=== PATIENT | female | born 1955 | race Caucasian/White ===

== ENCOUNTER 2016-11-09 15:48 | Inpatient (IN) | payer BC ==
[~2016-11-09] VITALS: Ht 167.6 cm; Wt 102.0 kg
[~2016-11-09 15:48] MED LIST: DICLOFENAC SODI50 MG PO; LEXAPRO10 MG PO; NORCO 5/3251 TABLET PO; VITAMIN C1000 M1 PO; XANAX0.5 MG PO
[2016-11-09 17:16] LABS: BASOPHIL COUNT 0.1 K/uL (0-0.1); EOSINOPHIL (%) 16.6 % (0-5); EOSINOPHIL COUNT 2.2 K/uL (0-0.3); HEMATOCRIT 37.6 % (36.0-46.0); IMMATURE GRANULOCYTE (%) 1.5 % (0.0-0.7); IMMATURE GRANULOCYTE COUNT 0.2 K/uL; INSTRUMENT ABS NEUTROPHIL CT 8.5 K/uL; LYMPHOCYTE COUNT 1.3 K/uL (1.0-2.8); MCV 96.9 FL (83-99); MEAN PLAT.VOLUME 9.7 uM^3 (9.5-12.4); MONOCYTE (%) 5.8 % (3-12); MONOCYTE COUNT 0.8 K/uL (0-0.8); NEUTROPHIL (%) 65.4 % (45-76); NEUTROPHIL COUNT 8.5 K/uL (1.8-6.4); PLATELET COUNT 192 K/uL (156-360); RBC DIS.WIDTH-CV 14.6 % (11.8-14.6); RBC DIS.WIDTH-SD 51.8 % (39-53); RED BLOOD COUNT 3.88 M/uL (3.80-5.20)
[2016-11-09 17:25] LABS: CHLORIDE 103 mEq/L (99-109); POTASSIUM 3.8 mEq/L (3.7-5.4); SODIUM 137 mEq/L (136-147)
[2016-11-09 17:28] LABS: GLUCOSE 113 mg/dL (70-99)
[2016-11-09 17:29] LABS: ANION GAP 10 MEQ/L (2-14); TOTAL BILIRUBIN 0.8 mg/dL (0.0-1.0)
[2016-11-09 17:31] LABS: ALKALINE PHOSPHATASE 84 IU/L (3-129); GFR ESTIMATE (CALCULATED) > 59 mL/min/
[2016-11-09 17:32] LABS: UREA NITROGEN (BUN) 34 mg/dL (9-23)
[2016-11-09 17:35] LABS: LIPASE 3 U/L (1.0-51.0)
[2016-11-09] MEDS ORDERED: K-DUR10 MEQ PO (20:08)
[2016-11-09] MEDS ORDERED: LEVO-T50 MCG PO (20:09)
[2016-11-09] MEDS ORDERED: LASIX40 MG PO (20:10)
[2016-11-09] MEDS ORDERED: PROAIR HFA8.5 GM IH (20:11)
[2016-11-09] MEDS ORDERED: ASPIRIN325 MG PO (20:11)
[2016-11-09 20:24] LABS: ADD MIUA? YES; BILIRUBIN NEGATIVE; BLOOD SMALL; COLOR AMBER ((YELLOW)); GLUCOSE (STRIP) NEGATIVE; KETONES NEGATIVE; LEUKOCYTES SMALL; NITRITE NEGATIVE; PROTEIN (STRIP) 30; SPECIFIC GRAVITY 1.016 (1.000-1.030); UROBILINOGEN 0.2 MG/DL (0.2-1.0)
[2016-11-09 20:36] LABS: BACTERIA RARE /HPF; EPITHELIAL CELLS 1+ /HPF; HYALINE CASTS 30-40 /LPF; MUCUS 1+ /LPF; RED BLOOD CELLS 0-5 /HPF (0-5)
[2016-11-10 06:24] LABS: BASOPHIL COUNT 0.1 K/uL (0-0.1); EOSINOPHIL (%) 15.9 % (0-5); EOSINOPHIL COUNT 2.1 K/uL (0-0.3); HEMATOCRIT 36.3 % (36.0-46.0); IMMATURE GRANULOCYTE (%) 1.5 % (0.0-0.7); IMMATURE GRANULOCYTE COUNT 0.2 K/uL; INSTRUMENT ABS NEUTROPHIL CT 8.1 K/uL; LYMPHOCYTE COUNT 1.6 K/uL (1.0-2.8); MCH 31.7 PG (29.0-34.0); MCHC 32.8 G/DL (30.0-36.0); MCV 96.8 FL (83-99); MEAN PLAT.VOLUME 9.6 uM^3 (9.5-12.4); MONOCYTE COUNT 0.9 K/uL (0-0.8); NEUTROPHIL (%) 62.7 % (45-76); NEUTROPHIL COUNT 8.1 K/uL (1.8-6.4); PLATELET COUNT 203 K/uL (156-360); RBC DIS.WIDTH-CV 14.6 % (11.8-14.6); RBC DIS.WIDTH-SD 51.8 % (39-53); RED BLOOD COUNT 3.75 M/uL (3.80-5.20); WHITE BLOOD COUNT 12.9 K/uL (4.1-10.2)
[2016-11-10 06:35] LABS: CHLORIDE 103 mEq/L (99-109); POTASSIUM 3.9 mEq/L (3.7-5.4); SODIUM 135 mEq/L (136-147)
[2016-11-10 06:37] LABS: GLUCOSE 108 mg/dL (70-99)
[2016-11-10 06:38] LABS: ANION GAP 9 MEQ/L (2-14)
[2016-11-10 06:40] LABS: ALKALINE PHOSPHATASE 74 IU/L (3-129)
[2016-11-10 06:41] LABS: GFR ESTIMATE (CALCULATED) > 59 mL/min/; TOTAL BILIRUBIN 0.6 mg/dL (0.0-1.0)
[2016-11-10 06:42] LABS: UREA NITROGEN (BUN) 33 mg/dL (9-23)
[2016-11-10 06:44] LABS: CREATINE KINASE 15 IU/L (1-294)
[2016-11-10 07:55] LABS: CA-125 25 U/ML (LESS THAN 35)
[2016-11-10 08:29] VITALS: BP 118/78
[2016-11-10 10:28] LABS: LYME DISEASE SEROLOGY SCREEN NEGATIVE (NEGATIVE)
[2016-11-10 11:50] VITALS: BP 117/79
[2016-11-10 14:12] VITALS: BP 112/63
[2016-11-10 14:30] VITALS: BP 114/56
[2016-11-10 14:34] LABS: INTER. NORMALIZED RATIO 1.1; PROTHROMBIN TIME 11.5 (9.2-11.2); PTT 27.1 (25-32)
[2016-11-10 20:33] VITALS: BP 111/56
[2016-11-10 23:38] VITALS: BP 123/64
[2016-11-11 04:10] VITALS: BP 119/63
[2016-11-11 07:47] LABS: HEMATOCRIT 35.9 % (36.0-46.0); MCH 31.9 PG (29.0-34.0); MCHC 32.3 G/DL (30.0-36.0); MCV 98.6 FL (83-99); MEAN PLAT.VOLUME 9.6 uM^3 (9.5-12.4); NRBC (%) 0.2 /100 WBC (0-0); PLATELET COUNT 188 K/uL (156-360); RBC DIS.WIDTH-CV 14.6 % (11.8-14.6); RBC DIS.WIDTH-SD 53.6 % (39-53); RED BLOOD COUNT 3.64 M/uL (3.80-5.20); WHITE BLOOD COUNT 12.8 K/uL (4.1-10.2)
[2016-11-11 08:10] LABS: ALKALINE PHOSPHATASE 74 IU/L (3-129); ANION GAP 9 MEQ/L (2-14); CHLORIDE 102 MEQ/L (99-109); GFR ESTIMATE (CALCULATED) 53 mL/min/; GLUCOSE 121 mg/dL (70-99); POTASSIUM 3.6 MEQ/L (3.7-5.4); SAMPLE HEMOLYSIS CHECK 0; SAMPLE ICTERIC CHECK 0; SAMPLE LIPEMIA CHECK 0; SODIUM 134 MEQ/L (136-147); TOTAL BILIRUBIN 0.5 MG/DL (0.0-1.0); UREA NITROGEN (BUN) 34 mg/dL (9-23)
[2016-11-11 08:30] VITALS: BP 97/54
[2016-11-11] MEDS ORDERED: CYANOCOBALAM1000 MCG PO (09:19)
[2016-11-11] MEDS ORDERED: CIPRO500 MG PO (09:20)
[2016-11-11] MEDS ORDERED: ATIVAN0.5 MG PO (09:21)
[2016-11-11 10:52] LABS: ANTI-NUCLEAR AB SCRN/RFLX(ANA) NONREACTIVE (NONREACTIVE)
[2016-11-12 17:13] LABS: Flow Clinical Information NOT PROVIDED (()); Flow Number of Markers 24 (()); Flow Spec Viability 81 % (())
== END 2016-11-11 12:04 | disposition home or self-care (01) | DRG 988 ==
LOC: EME 15:48 → 3EAST 19:30 → EDOF 19:30 → 3EAST 11-10 07:16
PROVIDERS: Anesthesiology; Family Medicine; Physician Assistant; Radiology Diagnostic Radiology
PROC: 07BH3ZX Excision of Right Inguinal Lymphatic, Percutaneous Approach, Diagnostic (ICD-10-PCS; principal; 2016-11-11)
DX: K56.7 Ileus, unspecified (principal); N39.0 Urinary tract infection, site not specified; D68.69 Other thrombophilia; I08.3 Combined rheumatic disorders of mitral, aortic and tricuspid valves; I80.9 Phlebitis and thrombophlebitis of unspecified site; R16.1 Splenomegaly, not elsewhere classified; R59.1 Generalized enlarged lymph nodes; E03.9 Hypothyroidism, unspecified; I10 Essential (primary) hypertension; E78.5 Hyperlipidemia, unspecified; E78.1 Pure hyperglyceridemia; F43.23 Adjustment disorder with mixed anxiety and depressed mood; E53.8 Deficiency of other specified B group vitamins; E87.6 Hypokalemia; E86.0 Dehydration; K59.00 Constipation, unspecified; F17.210 Nicotine dependence, cigarettes, uncomplicated; Z91.19 Patient's noncompliance with other medical treatment and regimen
CPT/HCPCS: 71275; 74176; 76942; 80053; 81003; 82550; 82607; 83605; 83690; 84439; 84443; 85025; 85027; 85610; 85730; 86038; 86304; 86430; 86618; 87086; 88184 90; 88185 90; 88189 90; 88305; 93005; 93306; 99202; 99281; 99285; C9113; J0696; J1885; J2405; J2765; J3010; J7030; J7050

== ENCOUNTER 2016-11-16 15:51 | Inpatient (IN) | payer BC ==
[~2016-11-16] VITALS: Ht 167.6 cm; Wt 110.9 kg
[~2016-11-16 15:51] MED LIST changes: +ASPIRIN325 MG PO; +ATIVAN0.5 MG PO; +CIPRO500 MG PO; +CYANOCOBALAM1000 MCG PO; +K-DUR10 MEQ PO; +LASIX40 MG PO; +LEVO-T50 MCG PO; +PROAIR HFA8.5 GM IH
[2016-11-16] MEDS ORDERED: ZOFRAN ODT4 MG PO (16:35)
[2016-11-16] MEDS ORDERED: KLOR-CON 1010 ME1 PO (16:36)
[2016-11-16 17:44] LABS: HEMATOCRIT 29.7 % (36.0-46.0); MCH 31.5 PG (29.0-34.0); MCV 95.5 FL (83-99); RBC DIS.WIDTH-CV 14.7 % (11.8-14.6); RBC DIS.WIDTH-SD 51.9 % (39-53); RED BLOOD COUNT 3.11 M/uL (3.80-5.20); WHITE BLOOD COUNT 12.9 K/uL (4.1-10.2)
[2016-11-16 17:47] LABS: CHLORIDE 106 mEq/L (99-109); POTASSIUM 3.6 mEq/L (3.7-5.4); SODIUM 134 mEq/L (136-147)
[2016-11-16 17:49] LABS: GLUCOSE 109 mg/dL (70-99)
[2016-11-16 17:51] LABS: ANION GAP 7 MEQ/L (2-14)
[2016-11-16 17:53] LABS: ALKALINE PHOSPHATASE 75 IU/L (3-129); GFR ESTIMATE (CALCULATED) 53 mL/min/
[2016-11-16 17:54] LABS: UREA NITROGEN (BUN) 41 mg/dL (9-23)
[2016-11-16 17:55] LABS: DIRECT BILIRUBIN 0.4 mg/dL (0.0-0.3)
[2016-11-16 17:56] LABS: LIPASE 3 U/L (1.0-51.0)
[2016-11-16 17:59] LABS: TOTAL BILIRUBIN 0.9 mg/dL (0.0-1.0)
[2016-11-16 18:09] VITALS: BP 126/62
[2016-11-16 18:24] LABS: MEAN PLAT.VOLUME 11.3 uM^3 (9.5-12.4); PLATELET COUNT 53 K/uL (156-360)
[2016-11-16 19:47] LABS: AMYLASE 6 IU/L (1-118)
[2016-11-16 20:19] VITALS: BP 119/70
[2016-11-16 20:37] LABS: GAMMA-GT 17 IU/L (4-73)
[2016-11-16 22:42] LABS: ADD MIUA? YES; BILIRUBIN NEGATIVE; BLOOD MODERATE; COLOR YELLOW ((YELLOW)); GLUCOSE (STRIP) NEGATIVE; KETONES NEGATIVE; LEUKOCYTES NEGATIVE; NITRITE NEGATIVE; PROTEIN (STRIP) NEGATIVE; SPECIFIC GRAVITY 1.015 (1.000-1.030); UROBILINOGEN 0.2 MG/DL (0.2-1.0)
[2016-11-16 23:35] VITALS: BP 126/70
[2016-11-16 23:51] LABS: BACTERIA NONE SEEN /HPF; EPITHELIAL CELLS RARE /HPF; MUCUS TRACE /LPF; RED BLOOD CELLS 0-5 /HPF (0-5); UCUL ADDED? NO; WHITE BLOOD CELLS 0-5 /HPF (0-5)
[2016-11-17 04:10] VITALS: BP 110/63
[2016-11-17 07:12] LABS: HEMATOCRIT 32.7 % (36.0-46.0); MCH 31.4 PG (29.0-34.0); MCHC 32.1 G/DL (30.0-36.0); MCV 97.9 FL (83-99); RBC DIS.WIDTH-CV 15.1 % (11.8-14.6); RBC DIS.WIDTH-SD 54.7 % (39-53); RED BLOOD COUNT 3.34 M/uL (3.80-5.20); WHITE BLOOD COUNT 11.8 K/uL (4.1-10.2)
[2016-11-17 07:38] LABS: ANION GAP 8 MEQ/L (2-14); CHLORIDE 106 MEQ/L (99-109); GFR ESTIMATE (CALCULATED) 53 mL/min/; GLUCOSE 117 mg/dL (70-99); POTASSIUM 3.9 MEQ/L (3.7-5.4); SAMPLE HEMOLYSIS CHECK 0; SAMPLE ICTERIC CHECK 0; SAMPLE LIPEMIA CHECK 0; SODIUM 137 MEQ/L (136-147); UREA NITROGEN (BUN) 36 mg/dL (9-23)
[2016-11-17 07:53] LABS: ABS NEUTROPHIL COUNT 7.2; ATYPICAL LYMPHOCYTE 8.1 %; BAND NEUTROPHILS 7.2 % (0-8.0); EOSINOPHIL ABS CT 1.2; EOSINOPHILS 9.9 % (0-5.0); IMM.PLATELET FRACTION 3.8 (1-7); INSTRUMENT ABS NEUTROPHIL CT 5.7 K/uL; LYMPHOCYTES 10.8 % (15.0-45.0); MEAN PLAT.VOLUME 10.7 uM^3 (9.5-12.4); METAMYELOCYTES 4.5 %; MYELOCYTES 3.6 %; PLAT.SUFFICIENCY DECREASED; PLATELET COUNT 48 K/uL (156-360); SEG.NEUTROPHILS 54.1 % (46.0-76.0); SPHEROCYTES 1+
[2016-11-17 08:00] VITALS: BP 98/54
[2016-11-17 11:25] VITALS: BP 102/57
[2016-11-17 17:25] VITALS: BP 118/69
[2016-11-17 23:44] VITALS: BP 100/49
[2016-11-18 07:33] VITALS: BP 82/46
[2016-11-18 07:45] LABS: HEMATOCRIT 31.6 % (36.0-46.0); MCH 32.1 PG (29.0-34.0); MCHC 32.6 G/DL (30.0-36.0); MCV 98.4 FL (83-99); RBC DIS.WIDTH-SD 54.6 % (39-53); RED BLOOD COUNT 3.21 M/uL (3.80-5.20); WHITE BLOOD COUNT 10.3 K/uL (4.1-10.2)
[2016-11-18 09:53] LABS: ALKALINE PHOSPHATASE 58 IU/L (3-129); ANION GAP 6 MEQ/L (2-14); CHLORIDE 108 MEQ/L (99-109); DIRECT BILIRUBIN 0.2 mg/dL (0.0-0.3); GFR ESTIMATE (CALCULATED) > 59 mL/min/; GLUCOSE 104 mg/dL (70-99); MAGNESIUM 2.1 mg/dl (1.3-2.7); POTASSIUM 4.4 MEQ/L (3.7-5.4); PREALBUMIN 5.7 mg/dL (10-40); SAMPLE HEMOLYSIS CHECK 0; SAMPLE ICTERIC CHECK 0; SAMPLE LIPEMIA CHECK 0; SODIUM 136 MEQ/L (136-147); TRIGLYCERIDES 180 MG/DL (Normal: <150); UREA NITROGEN (BUN) 30 mg/dL (9-23)
[2016-11-18 09:54] LABS: TOTAL BILIRUBIN 0.7 MG/DL (0.0-1.0)
[2016-11-18 10:55] VITALS: BP 88/46
[2016-11-18 11:13] LABS: ABS NEUTROPHIL COUNT 5.2; EOSINOPHIL ABS CT 1.4; IMM.PLATELET FRACTION 3.9 (1-7); INSTRUMENT ABS NEUTROPHIL CT 4.9 K/uL; MEAN PLAT.VOLUME 11.6 uM^3 (9.5-12.4); PLATELET COUNT 37 K/uL (156-360)
[2016-11-18 16:00] VITALS: BP 90/49
[2016-11-18 19:45] VITALS: BP 99/42
[2016-11-19 00:17] VITALS: BP 93/49
[2016-11-19 06:49] VITALS: BP 96/53
[2016-11-19 08:13] LABS: CHLORIDE 109 mEq/L (99-109); POTASSIUM 4.6 mEq/L (3.7-5.4); SODIUM 133 mEq/L (136-147)
[2016-11-19 08:14] LABS: MAGNESIUM 1.8 mg/dL (1.3-2.7)
[2016-11-19 08:15] LABS: GLUCOSE 115 mg/dL (70-99)
[2016-11-19 08:17] LABS: ANION GAP 5 MEQ/L (2-14)
[2016-11-19 08:19] LABS: GFR ESTIMATE (CALCULATED) > 59 mL/min/
[2016-11-19 08:20] LABS: UREA NITROGEN (BUN) 26 mg/dL (9-23)
[2016-11-19 10:24] VITALS: BP 95/61
[2016-11-19 11:20] LABS: HEMATOCRIT 30.6 % (36.0-46.0); MCHC 32.4 G/DL (30.0-36.0); RBC DIS.WIDTH-SD 54.3 % (39-53); RED BLOOD COUNT 3.09 M/uL (3.80-5.20); WHITE BLOOD COUNT 8.3 K/uL (4.1-10.2)
[2016-11-19 13:37] LABS: ABS NEUTROPHIL COUNT 6.1; ACANTHOCYTES 1+; ANISOCYTOSIS 2+; BURR CELLS 1+; EOSINOPHIL ABS CT 0.4; HELMET CELLS 1+; IMM.PLATELET FRACTION 6.2 (1-7); INSTRUMENT ABS NEUTROPHIL CT 4.2 K/uL; POIKILOCYTOSIS 2+; TARGET CELLS 1+
[2016-11-19 13:53] LABS: PLATELET COUNT 30 K/uL (156-360)
[2016-11-19 16:01] VITALS: BP 102/60
[2016-11-20 07:07] LABS: ANION GAP 4 MEQ/L (2-14); CHLORIDE 109 MEQ/L (99-109); GFR ESTIMATE (CALCULATED) > 59 mL/min/; GLUCOSE 113 mg/dL (70-99); MAGNESIUM 1.9 mg/dl (1.3-2.7); POTASSIUM 4.4 MEQ/L (3.7-5.4); SAMPLE HEMOLYSIS CHECK 0; SAMPLE ICTERIC CHECK 0; SAMPLE LIPEMIA CHECK 0; SODIUM 133 MEQ/L (136-147); UREA NITROGEN (BUN) 25 mg/dL (9-23)
[2016-11-20 08:38] VITALS: BP 114/65
[2016-11-20 11:48] LABS: HEMATOCRIT 28.3 % (36.0-46.0); MCH 31.8 PG (29.0-34.0); MCHC 32.2 G/DL (30.0-36.0); RBC DIS.WIDTH-CV 15.1 % (11.8-14.6); RBC DIS.WIDTH-SD 54.8 % (39-53); RED BLOOD COUNT 2.86 M/uL (3.80-5.20); WHITE BLOOD COUNT 6.2 K/uL (4.1-10.2)
[2016-11-20 12:17] LABS: MEAN PLAT.VOLUME 12.1 uM^3 (9.5-12.4); PLAT.SUFFICIENCY DECREASED
[2016-11-20 12:58] LABS: PLATELET COUNT 27 K/uL (156-360)
[2016-11-20 15:48] VITALS: BP 102/55
[2016-11-20 20:28] VITALS: BP 109/69
[2016-11-20 23:41] VITALS: BP 116/70
[2016-11-21 06:11] LABS: HEMATOCRIT 26.3 % (36.0-46.0); MCH 31.5 PG (29.0-34.0); MCHC 32.3 G/DL (30.0-36.0); MCV 97.4 FL (83-99); RBC DIS.WIDTH-CV 15.2 % (11.8-14.6); WHITE BLOOD COUNT 6.2 K/uL (4.1-10.2)
[2016-11-21 06:36] LABS: ANION GAP 5 MEQ/L (2-14); CHLORIDE 110 MEQ/L (99-109); GFR ESTIMATE (CALCULATED) > 59 mL/min/; GLUCOSE 128 mg/dL (70-99); MAGNESIUM 1.9 mg/dl (1.3-2.7); POTASSIUM 4.3 MEQ/L (3.7-5.4); SAMPLE HEMOLYSIS CHECK 0; SAMPLE ICTERIC CHECK 0; SAMPLE LIPEMIA CHECK 0; SODIUM 135 MEQ/L (136-147); UREA NITROGEN (BUN) 26 mg/dL (9-23)
[2016-11-21 07:45] VITALS: BP 116/64
[2016-11-21 08:04] LABS: EOSINOPHIL (%) 5.5 % (0-5); EOSINOPHIL COUNT 0.3 K/uL (0-0.3); HEMATOLOGY COMMENT 1 SMEAR COMPATIBLE; IMM.PLATELET FRACTION 4.2 (1-7); IMMATURE GRANULOCYTE COUNT 0.3 K/uL; INSTRUMENT ABS NEUTROPHIL CT 3.3 K/uL; LYMPHOCYTE COUNT 1.8 K/uL (1.0-2.8); MEAN PLAT.VOLUME 11.1 uM^3 (9.5-12.4); MONOCYTE (%) 8.1 % (3-12); MONOCYTE COUNT 0.5 K/uL (0-0.8); NEUTROPHIL (%) 52.6 % (45-76); NEUTROPHIL COUNT 3.3 K/uL (1.8-6.4)
[2016-11-21 08:05] LABS: PLATELET COUNT 27 K/uL (156-360)
[2016-11-21 08:09] LABS: FERRITIN 234 NG/ML (10-291)
[2016-11-21 15:00] VITALS: BP 108/72
[2016-11-21 23:51] VITALS: BP 118/60
[2016-11-22 03:15] VITALS: BP 97/56
[2016-11-22 07:45] VITALS: BP 125/84
[2016-11-22 12:02] LABS: HEMATOCRIT 24.3 % (36.0-46.0); MCH 31.3 PG (29.0-34.0); MCHC 32.1 G/DL (30.0-36.0); MCV 97.6 FL (83-99); RED BLOOD COUNT 2.49 M/uL (3.80-5.20)
[2016-11-22 12:03] LABS: WHITE BLOOD COUNT 3.4 K/uL (4.1-10.2)
[2016-11-22 12:21] LABS: ATYPICAL LYMPHOCYTE 1.8 %; EOSINOPHIL ABS CT 0.1; EOSINOPHILS 3.5 % (0-5.0); IMM.PLATELET FRACTION 4.7 (1-7); INSTRUMENT ABS NEUTROPHIL CT 1.9 K/uL; LYMPHOCYTES 28.3 % (15.0-45.0); MEAN PLAT.VOLUME 11.6 uM^3 (9.5-12.4); MYELOCYTES 1.8 %; NUCLEATED RBC'S 0.9; PLAT.SUFFICIENCY DECREASED; SEG.NEUTROPHILS 58.4 % (46.0-76.0)
[2016-11-22 12:28] LABS: PLATELET COUNT 25 K/uL (156-360)
[2016-11-22 12:36] LABS: ALKALINE PHOSPHATASE 102 IU/L (3-129); ANION GAP 6 MEQ/L (2-14); CHLORIDE 108 MEQ/L (99-109); DIRECT BILIRUBIN 0.2 mg/dL (0.0-0.3); GFR ESTIMATE (CALCULATED) > 59 mL/min/; GLUCOSE 113 mg/dL (70-99); POTASSIUM 3.7 MEQ/L (3.7-5.4); PREALBUMIN 5.9 mg/dL (10-40); SAMPLE HEMOLYSIS CHECK 0; SAMPLE ICTERIC CHECK 0; SAMPLE LIPEMIA CHECK 0; SODIUM 135 MEQ/L (136-147); TOTAL BILIRUBIN 0.6 MG/DL (0.0-1.0); TRIGLYCERIDES 163 MG/DL (Normal: <150); UREA NITROGEN (BUN) 25 mg/dL (9-23)
[2016-11-22 15:35] VITALS: BP 104/56
[2016-11-23] VITALS (13 sets, daily range): BP systolic 105–125; BP diastolic 54–68
[2016-11-23 09:40] LABS: HEMATOCRIT 23.1 % (36.0-46.0); MCH 31.9 PG (29.0-34.0); MCHC 32.5 G/DL (30.0-36.0); MCV 98.3 FL (83-99); RBC DIS.WIDTH-SD 54.4 % (39-53); RED BLOOD COUNT 2.35 M/uL (3.80-5.20); WHITE BLOOD COUNT 2.9 K/uL (4.1-10.2)
[2016-11-23 09:50] LABS: INTER. NORMALIZED RATIO 1.2; PROTHROMBIN TIME 11.9 (9.2-11.2); PTT 29.9 (25-32)
[2016-11-23 09:56] LABS: CHLORIDE 110 mEq/L (99-109); POTASSIUM 3.8 mEq/L (3.7-5.4); SODIUM 139 mEq/L (136-147)
[2016-11-23 09:57] LABS: MAGNESIUM 1.9 mg/dL (1.3-2.7)
[2016-11-23 09:58] LABS: GLUCOSE 107 mg/dL (70-99)
[2016-11-23 10:00] LABS: ANION GAP 9 MEQ/L (2-14); EOSINOPHIL (%) 2.7 % (0-5); EOSINOPHIL COUNT 0.1 K/uL (0-0.3); IMMATURE GRANULOCYTE (%) 2.4 % (0.0-0.7); IMMATURE GRANULOCYTE COUNT 0.1 K/uL; INSTRUMENT ABS NEUTROPHIL CT 1.7 K/uL; LYMPHOCYTE COUNT 0.8 K/uL (1.0-2.8); MONOCYTE (%) 9.9 % (3-12); MONOCYTE COUNT 0.3 K/uL (0-0.8); NEUTROPHIL (%) 56.5 % (45-76); NEUTROPHIL COUNT 1.7 K/uL (1.8-6.4)
[2016-11-23 10:02] LABS: GFR ESTIMATE (CALCULATED) > 59 mL/min/
[2016-11-23 10:03] LABS: UREA NITROGEN (BUN) 26 mg/dL (9-23)
[2016-11-23 10:26] LABS: IMM.PLATELET FRACTION 4.8 (1-7); MEAN PLAT.VOLUME 11.9 uM^3 (9.5-12.4); PLAT.SUFFICIENCY DECREASED
[2016-11-23 10:28] LABS: PLATELET COUNT 25 K/uL (156-360)
[2016-11-23 13:06] LABS: ANISOCYTOSIS 1+; OVALOCYTES OCC
[2016-11-24 04:09] VITALS: BP 128/60
[2016-11-24 06:50] VITALS: BP 119/62
[2016-11-24 09:37] LABS: HEMATOCRIT 25.6 % (36.0-46.0); MCH 35.8 PG (29.0-34.0); MCHC 33.6 G/DL (30.0-36.0); RBC DIS.WIDTH-CV 17.4 % (11.8-14.6); RBC DIS.WIDTH-SD 68.8 % (39-53); WHITE BLOOD COUNT 2.8 K/uL (4.1-10.2)
[2016-11-24 09:42] LABS: MCV 106.7 FL (83-99)
[2016-11-24 10:04] LABS: EOSINOPHIL (%) 2.9 % (0-5); EOSINOPHIL COUNT 0.1 K/uL (0-0.3); IMM.PLATELET FRACTION 4.5 (1-7); IMMATURE GRANULOCYTE (%) 1.8 % (0.0-0.7); IMMATURE GRANULOCYTE COUNT 0.1 K/uL; INSTRUMENT ABS NEUTROPHIL CT 1.7 K/uL; LYMPHOCYTE COUNT 0.7 K/uL (1.0-2.8); MEAN PLAT.VOLUME 12.6 uM^3 (9.5-12.4); MONOCYTE (%) 8.3 % (3-12); MONOCYTE COUNT 0.2 K/uL (0-0.8); NEUTROPHIL (%) 62.5 % (45-76); NEUTROPHIL COUNT 1.7 K/uL (1.8-6.4); PLAT.SUFFICIENCY DECREASED
[2016-11-24 10:07] LABS: PLATELET COUNT 37 K/uL (156-360)
[2016-11-24 12:04] LABS: ANION GAP 4 MEQ/L (2-14); CHLORIDE 110 MEQ/L (99-109); GFR ESTIMATE (CALCULATED) > 59 mL/min/; GLUCOSE 148 mg/dL (70-99); POTASSIUM 3.4 MEQ/L (3.7-5.4); SAMPLE HEMOLYSIS CHECK 0; SAMPLE ICTERIC CHECK 0; SAMPLE LIPEMIA CHECK 0; SODIUM 140 MEQ/L (136-147); UREA NITROGEN (BUN) 28 mg/dL (9-23)
[2016-11-24 12:12] VITALS: BP 121/62
[2016-11-24 16:13] VITALS: BP 137/68
[2016-11-24 19:35] VITALS: BP 125/63
[2016-11-24 23:31] VITALS: BP 133/64
[2016-11-25 04:11] VITALS: BP 139/60
[2016-11-25 07:19] LABS: ANION GAP 7 MEQ/L (2-14); CHLORIDE 105 MEQ/L (99-109); GFR ESTIMATE (CALCULATED) > 59 mL/min/; GLUCOSE 124 mg/dL (70-99); POTASSIUM 4.1 MEQ/L (3.7-5.4); SAMPLE HEMOLYSIS CHECK 0; SAMPLE ICTERIC CHECK 0; SAMPLE LIPEMIA CHECK 0; SODIUM 135 MEQ/L (136-147); UREA NITROGEN (BUN) 32 mg/dL (9-23)
[2016-11-25 07:45] VITALS: BP 135/92
[2016-11-25] MEDS ORDERED: SPIRIVA RESPIMAT4 GM IH (12:50)
[2016-11-25] MEDS ORDERED: CYANOCOBAL1000 MCG/2 SC (12:53)
[2016-11-25 17:13] LABS: Flow Number of Markers 22 (()); Flow Spec Viability 90 % (()); Flow Specimen Type BONE MARROW (())
== END 2016-11-25 15:35 | disposition home health service (06) | DRG 840 ==
LOC: EME 15:51 → 2EAST 16:29 → EDOF 16:29 → 2EAST 17:39
PROVIDERS: Anesthesiology; Emergency Medicine; Family Medicine; Internal Medicine Gastroenterology; Nurse Practitioner Adult Health; Physician Assistant; Radiology Diagnostic Radiology
PROC: 0DB68ZX Excision of Stomach, Via Natural or Artificial Opening Endoscopic, Diagnostic (ICD-10-PCS; principal; 2016-11-17)
PROC: 0DB98ZX Excision of Duodenum, Via Natural or Artificial Opening Endoscopic, Diagnostic (ICD-10-PCS; principal; 2016-11-17)
PROC: 3E0436Z Introduction of Nutritional Substance into Central Vein, Percutaneous Approach (ICD-10-PCS; 2016-11-19)
PROC: 30233N1 Transfusion of Nonautologous Red Blood Cells into Peripheral Vein, Percutaneous Approach (ICD-10-PCS; 2016-11-23)
PROC: 07DR3ZX Extraction of Iliac Bone Marrow, Percutaneous Approach, Diagnostic (ICD-10-PCS; 2016-11-23)
DX: C85.98 Non-Hodgkin lymphoma, unspecified, lymph nodes of multiple sites (principal); K56.7 Ileus, unspecified; I10 Essential (primary) hypertension; R60.9 Edema, unspecified; K25.9 Gastric ulcer, unspecified as acute or chronic, without hemorrhage or perforation; F41.9 Anxiety disorder, unspecified; E78.5 Hyperlipidemia, unspecified; E78.1 Pure hyperglyceridemia; E03.9 Hypothyroidism, unspecified; F32.9 Major depressive disorder, single episode, unspecified; D68.59 Other primary thrombophilia; E43 Unspecified severe protein-calorie malnutrition; D68.61 Antiphospholipid syndrome; K44.9 Diaphragmatic hernia without obstruction or gangrene; D63.0 Anemia in neoplastic disease; D69.59 Other secondary thrombocytopenia; D51.9 Vitamin B12 deficiency anemia, unspecified; J44.9 Chronic obstructive pulmonary disease, unspecified; F43.23 Adjustment disorder with mixed anxiety and depressed mood; F17.210 Nicotine dependence, cigarettes, uncomplicated; Z68.39 Body mass index [BMI] 39.0-39.9, adult; E66.9 Obesity, unspecified; Z68.35 Body mass index [BMI] 35.0-35.9, adult; R62.7 Adult failure to thrive; R09.02 Hypoxemia
CPT/HCPCS: 71010; 71020; 71250; 76705; 76937; 77012; 80048; 80053; 80076; 81003; 82150; 82248; 82728; 82746; 82977; 83605; 83690; 83735; 84100; 84134; 84478; 84540; 84630 90; 85025; 85025 91; 85027; 85610; 85730; 85999; 86900; 86901; 86920; 87040; 87086; 88184 90; 88185 90; 88189 90; 88305; 88342 TC; 93971; 94010; 94640 76; 94799; 99202; 99281; 99284; C9113; J1940; J1956; J2060; J2270; J2405; J3010; J3420; J3480; J7030; J7042; P9016

== ENCOUNTER 2016-12-20 10:31 | Inpatient (IN) | payer BC ==
[~2016-12-20] VITALS: Ht 167.6 cm; Wt 93.2 kg
[2016-12-20] VITALS (11 sets, daily range): BP systolic 128–167; BP diastolic 61–89
[~2016-12-20 10:31] MED LIST changes: +CYANOCOBAL1000 MCG/2 SC; +KLOR-CON 1010 ME1 PO; +SPIRIVA RESPIMAT4 GM IH; +ZOFRAN ODT4 MG PO
[2016-12-20 12:23] LABS: CHLORIDE 109 mEq/L (99-109); POTASSIUM 4.3 mEq/L (3.7-5.4); SODIUM 138 mEq/L (136-147)
[2016-12-20 12:25] LABS: EOSINOPHIL (%) 1.3 % (0-5); EOSINOPHIL COUNT 0.1 K/uL (0-0.3); GLUCOSE 116 mg/dL (70-99); HEMATOCRIT 18.2 % (36.0-46.0); IMMATURE GRANULOCYTE (%) 3.1 % (0.0-0.7); IMMATURE GRANULOCYTE COUNT 0.2 K/uL; INSTRUMENT ABS NEUTROPHIL CT 2.5 K/uL; LYMPHOCYTE COUNT 1.7 K/uL (1.0-2.8); MCH 30.1 PG (29.0-34.0); MCHC 31.9 G/DL (30.0-36.0); MCV 94.3 FL (83-99); MONOCYTE (%) 8.5 % (3-12); MONOCYTE COUNT 0.4 K/uL (0-0.8); NEUTROPHIL (%) 51.3 % (45-76); NEUTROPHIL COUNT 2.5 K/uL (1.8-6.4); NRBC (%) 0.4 /100 WBC (0-0); PLATELET COUNT 64 K/uL (156-360); RBC DIS.WIDTH-CV 14.5 % (11.8-14.6); RBC DIS.WIDTH-SD 49.3 % (39-53); RED BLOOD COUNT 1.93 M/uL (3.80-5.20); WHITE BLOOD COUNT 4.8 K/uL (4.1-10.2)
[2016-12-20 12:26] LABS: ANION GAP 7 MEQ/L (2-14)
[2016-12-20 12:29] LABS: GFR ESTIMATE (CALCULATED) > 59 mL/min/
[2016-12-20 12:30] LABS: UREA NITROGEN (BUN) 16 mg/dL (9-23)
[2016-12-20 12:40] LABS: INTER. NORMALIZED RATIO 1.1; PROTHROMBIN TIME 11.5 (9.2-11.2)
[2016-12-20] MEDS ORDERED: FUROSEMIDE40 MG PO (14:30)
[2016-12-20] MEDS ORDERED: K-DUR20 MEQ PO (14:30)
[2016-12-20] MEDS ORDERED: SPIRIVA1 INHALATI IH (14:32)
[2016-12-20] MEDS ORDERED: FLORASTOR250 MG PO (14:34)
[2016-12-20] MEDS ORDERED: COREG3.125 M1 PO (14:35)
[2016-12-20] MEDS ORDERED: OMEPRAZOLE20 MG PO (14:36)
[2016-12-20] MEDS ORDERED: DOXYCYCLINE MO100 M1 PO (14:38)
[2016-12-20] MEDS ORDERED: DIFLUCAN100 MG PO (14:39)
[2016-12-20] MEDS ORDERED: ATIVAN0.5 MG PO (14:40)
[2016-12-20] MEDS ORDERED: MOTRIN400 MG PO (14:42)
[2016-12-20] MEDS ORDERED: NORCO 5/3251 TABLET PO (14:42)
[2016-12-20] MEDS ORDERED: TYLENOL REGULA325 MG PO (14:43)
[2016-12-20] MEDS ORDERED: MULTI-VITAMIN1 EAC4 PO (14:44)
[2016-12-21 04:15] VITALS: BP 153/68
[2016-12-21 07:30] VITALS: BP 138/77
[2016-12-21 07:52] LABS: EOSINOPHIL (%) 1.7 % (0-5); EOSINOPHIL COUNT 0.1 K/uL (0-0.3); HEMATOCRIT 22.8 % (36.0-46.0); IMMATURE GRANULOCYTE (%) 2.1 % (0.0-0.7); IMMATURE GRANULOCYTE COUNT 0.1 K/uL; INSTRUMENT ABS NEUTROPHIL CT 2.4 K/uL; LYMPHOCYTE COUNT 2.1 K/uL (1.0-2.8); MCH 30.1 PG (29.0-34.0); MCHC 32.9 G/DL (30.0-36.0); MCV 91.6 FL (83-99); MEAN PLAT.VOLUME 10.5 uM^3 (9.5-12.4); MONOCYTE (%) 8.5 % (3-12); MONOCYTE COUNT 0.4 K/uL (0-0.8); NEUTROPHIL (%) 46.5 % (45-76); NEUTROPHIL COUNT 2.4 K/uL (1.8-6.4); NRBC (%) 0.4 /100 WBC (0-0); PLATELET COUNT 62 K/uL (156-360); RBC DIS.WIDTH-CV 15.4 % (11.8-14.6); RBC DIS.WIDTH-SD 50.2 % (39-53); WHITE BLOOD COUNT 5.2 K/uL (4.1-10.2)
[2016-12-21 08:13] LABS: ALKALINE PHOSPHATASE 68 IU/L (3-129); ANION GAP 10 MEQ/L (2-14); CHLORIDE 106 MEQ/L (99-109); GFR ESTIMATE (CALCULATED) > 59 mL/min/; GLUCOSE 101 mg/dL (70-99); POTASSIUM 4.2 MEQ/L (3.7-5.4); SAMPLE HEMOLYSIS CHECK 0; SAMPLE ICTERIC CHECK 0; SAMPLE LIPEMIA CHECK 0; SODIUM 139 MEQ/L (136-147); TOTAL BILIRUBIN 0.9 MG/DL (0.0-1.0); UREA NITROGEN (BUN) 14 mg/dL (9-23)
[2016-12-21 08:21] LABS: RED BLOOD COUNT 2.49 M/uL (3.80-5.20)
[2016-12-21 11:45] VITALS: BP 142/72
[2016-12-21 15:00] VITALS: BP 180/82
[2016-12-21 19:28] VITALS: BP 173/86
[2016-12-21 23:31] VITALS: BP 146/79
[2016-12-22 03:55] VITALS: BP 131/66
[2016-12-22 08:20] VITALS: BP 180/80
[2016-12-22 09:17] LABS: EOSINOPHIL (%) 1.2 % (0-5); EOSINOPHIL COUNT 0.1 K/uL (0-0.3); HEMATOCRIT 23.1 % (36.0-46.0); IMMATURE GRANULOCYTE (%) 2.1 % (0.0-0.7); IMMATURE GRANULOCYTE COUNT 0.1 K/uL; INSTRUMENT ABS NEUTROPHIL CT 2.2 K/uL; LYMPHOCYTE COUNT 1.6 K/uL (1.0-2.8); MCH 29.4 PG (29.0-34.0); MCHC 32.5 G/DL (30.0-36.0); MCV 90.6 FL (83-99); MEAN PLAT.VOLUME 10.4 uM^3 (9.5-12.4); MONOCYTE (%) 8.1 % (3-12); MONOCYTE COUNT 0.3 K/uL (0-0.8); NEUTROPHIL (%) 51.2 % (45-76); NEUTROPHIL COUNT 2.2 K/uL (1.8-6.4); NRBC (%) 0.5 /100 WBC (0-0); PLATELET COUNT 59 K/uL (156-360); RBC DIS.WIDTH-CV 14.9 % (11.8-14.6); RBC DIS.WIDTH-SD 48.2 % (39-53); RED BLOOD COUNT 2.55 M/uL (3.80-5.20); WHITE BLOOD COUNT 4.2 K/uL (4.1-10.2)
[2016-12-22 09:25] LABS: CHLORIDE 108 mEq/L (99-109); POTASSIUM 4.3 mEq/L (3.7-5.4); SODIUM 137 mEq/L (136-147)
[2016-12-22 09:26] LABS: GLUCOSE 106 mg/dL (70-99)
[2016-12-22 09:28] LABS: ANION GAP 7 MEQ/L (2-14)
[2016-12-22 09:30] LABS: GFR ESTIMATE (CALCULATED) > 59 mL/min/
[2016-12-22 09:31] LABS: UREA NITROGEN (BUN) 13 mg/dL (9-23)
[2016-12-22 12:00] VITALS: BP 180/84
[2016-12-22 16:07] VITALS: BP 178/80
[2016-12-22 16:57] LABS: POINT-OF-CARE METER ID UU14162508
[2016-12-22 20:00] VITALS: BP 145/70
[2016-12-22 23:38] VITALS: BP 134/76
[2016-12-23] VITALS (7 sets, daily range): BP systolic 121–175; BP diastolic 66–80
[2016-12-24 09:59] VITALS: BP 138/70
[2016-12-24 17:18] VITALS: BP 132/78
[2016-12-24 23:17] VITALS: BP 152/71
[2016-12-25] VITALS (13 sets, daily range): BP systolic 128–172; BP diastolic 63–78
[2016-12-25 07:08] LABS: EOSINOPHIL (%) 1.9 % (0-5); EOSINOPHIL COUNT 0.1 K/uL (0-0.3); HEMATOCRIT 20.1 % (36.0-46.0); INSTRUMENT ABS NEUTROPHIL CT 1.6 K/uL; LYMPHOCYTE COUNT 1.2 K/uL (1.0-2.8); MCHC 32.3 G/DL (30.0-36.0); MCV 92.6 FL (83-99); MEAN PLAT.VOLUME 10.2 uM^3 (9.5-12.4); MONOCYTE (%) 7.7 % (3-12); MONOCYTE COUNT 0.2 K/uL (0-0.8); NEUTROPHIL (%) 50.6 % (45-76); NEUTROPHIL COUNT 1.6 K/uL (1.8-6.4); PLATELET COUNT 57 K/uL (156-360); RBC DIS.WIDTH-CV 14.9 % (11.8-14.6); RBC DIS.WIDTH-SD 49.1 % (39-53); RED BLOOD COUNT 2.17 M/uL (3.80-5.20); WHITE BLOOD COUNT 3.1 K/uL (4.1-10.2)
[2016-12-25 09:03] LABS: ANION GAP 7 MEQ/L (2-14); CHLORIDE 106 MEQ/L (99-109); GFR ESTIMATE (CALCULATED) > 59 mL/min/; GLUCOSE 97 mg/dL (70-99); POTASSIUM 4.3 MEQ/L (3.7-5.4); SAMPLE HEMOLYSIS CHECK 0; SAMPLE ICTERIC CHECK 0; SAMPLE LIPEMIA CHECK 0; SODIUM 136 MEQ/L (136-147); UREA NITROGEN (BUN) 13 mg/dL (9-23)
[2016-12-26 04:10] VITALS: BP 142/76
[2016-12-26 06:11] LABS: HEMATOCRIT 24.7 % (36.0-46.0); MCH 30.6 PG (29.0-34.0); MCHC 33.6 G/DL (30.0-36.0); MCV 91.1 FL (83-99); MEAN PLAT.VOLUME 10.4 uM^3 (9.5-12.4); PLATELET COUNT 61 K/uL (156-360); RBC DIS.WIDTH-CV 14.9 % (11.8-14.6); RBC DIS.WIDTH-SD 48.2 % (39-53); WHITE BLOOD COUNT 3.4 K/uL (4.1-10.2)
[2016-12-26 06:43] VITALS: BP 124/61
[2016-12-26 06:55] LABS: RED BLOOD COUNT 2.71 M/uL (3.80-5.20)
[2016-12-26 10:45] VITALS: BP 127/65
[2016-12-26 14:58] VITALS: BP 168/77
[2016-12-26 19:15] VITALS: BP 128/67
[2016-12-26 23:27] VITALS: BP 142/69
[2016-12-27 03:25] VITALS: BP 119/62
[2016-12-27 07:46] VITALS: BP 125/67
[2016-12-27 08:14] LABS: HEMATOCRIT 25.1 % (36.0-46.0); MCH 30.1 PG (29.0-34.0); MCHC 32.7 G/DL (30.0-36.0); MCV 92.3 FL (83-99); MEAN PLAT.VOLUME 10.5 uM^3 (9.5-12.4); PLATELET COUNT 70 K/uL (156-360); RBC DIS.WIDTH-SD 49.4 % (39-53); RED BLOOD COUNT 2.72 M/uL (3.80-5.20); WHITE BLOOD COUNT 3.1 K/uL (4.1-10.2)
[2016-12-27 10:47] LABS: LYME DISEASE SEROLOGY SCREEN NEGATIVE (NEGATIVE)
[2016-12-27 16:00] VITALS: BP 27/79
[2016-12-27 20:00] VITALS: BP 130/80
[2016-12-28 01:05] VITALS: BP 120/57
[2016-12-28 03:45] VITALS: BP 127/61
[2016-12-28 08:00] VITALS: BP 134/63
[2016-12-28 17:56] VITALS: BP 144/67
[2016-12-28 19:28] VITALS: BP 131/72
[2016-12-28 23:55] VITALS: BP 117/69
[2016-12-29 08:00] VITALS: BP 125/76; BP 125/77
[2016-12-29 16:00] VITALS: BP 139/65
[2016-12-29 23:08] VITALS: BP 124/58
[2016-12-30 06:31] LABS: HEMATOCRIT 24.3 % (36.0-46.0); MCH 30.5 PG (29.0-34.0); MCHC 32.9 G/DL (30.0-36.0); MCV 92.7 FL (83-99); MEAN PLAT.VOLUME 9.8 uM^3 (9.5-12.4); NRBC (%) 0.6 /100 WBC (0-0); PLATELET COUNT 82 K/uL (156-360); RBC DIS.WIDTH-CV 15.1 % (11.8-14.6); RBC DIS.WIDTH-SD 49.5 % (39-53); RED BLOOD COUNT 2.62 M/uL (3.80-5.20); WHITE BLOOD COUNT 3.4 K/uL (4.1-10.2)
[2016-12-30 06:58] LABS: ANION GAP 6 MEQ/L (2-14); CHLORIDE 107 MEQ/L (99-109); GFR ESTIMATE (CALCULATED) > 59 mL/min/; GLUCOSE 109 mg/dL (70-99); POTASSIUM 3.8 MEQ/L (3.7-5.4); SAMPLE HEMOLYSIS CHECK 0; SAMPLE ICTERIC CHECK 0; SAMPLE LIPEMIA CHECK 0; SODIUM 136 MEQ/L (136-147); UREA NITROGEN (BUN) 12 mg/dL (9-23)
[2016-12-30 07:20] VITALS: BP 131/67
[2016-12-30 08:02] LABS: EOSINOPHIL (%) 4.9 % (0-5); EOSINOPHIL COUNT 0.2 K/uL (0-0.3); IMMATURE GRANULOCYTE (%) 3.5 % (0.0-0.7); IMMATURE GRANULOCYTE COUNT 0.1 K/uL; LYMPHOCYTE COUNT 0.8 K/uL (1.0-2.8); MONOCYTE (%) 9.3 % (3-12); MONOCYTE COUNT 0.3 K/uL (0-0.8); NEUTROPHIL (%) 57.9 % (45-76); PLAT.SUFFICIENCY DECREASED
[2016-12-30 15:10] VITALS: BP 142/65
[2016-12-30] MEDS ORDERED: VALACYCLOVIR500 MG PO (18:23)
[2016-12-30] MEDS ORDERED: DRONABINOL2.5 MG PO (18:25)
[2017-01-07] MEDS ORDERED: SENNA PLUS TAB1 EACH PO (13:47)
[2017-01-07] MEDS ORDERED: COMPAZINE10 MG PO (13:47)
[2017-01-07] MEDS ORDERED: ZOFRAN4 MG PO (13:47)
[2017-01-07] MEDS ORDERED: XANAX0.5 MG PO (13:51)
== END 2016-12-30 21:21 | DRG 824 ==
LOC: EME 10:31 → EDOF 15:15 → 2EASTP 15:15 → 2EAST 15:15 → 2EASTP 12-21 14:53 → 5EAST 12-23 23:11
PROVIDERS: Emergency Medicine; Internal Medicine
PROC: 30233N1 Transfusion of Nonautologous Red Blood Cells into Peripheral Vein, Percutaneous Approach (ICD-10-PCS; 2016-12-20)
PROC: 07BH0ZX Excision of Right Inguinal Lymphatic, Open Approach, Diagnostic (ICD-10-PCS; principal; 2016-12-23)
DX: C84.45 Peripheral T-cell lymphoma, not elsewhere classified, lymph nodes of inguinal region and lower limb (principal); J44.9 Chronic obstructive pulmonary disease, unspecified; E53.8 Deficiency of other specified B group vitamins; D61.818 Other pancytopenia; F17.200 Nicotine dependence, unspecified, uncomplicated; A60.04 Herpesviral vulvovaginitis; A60.1 Herpesviral infection of perianal skin and rectum; D47.Z9 Other specified neoplasms of uncertain behavior of lymphoid, hematopoietic and related tissue; R16.1 Splenomegaly, not elsewhere classified; I10 Essential (primary) hypertension; E78.5 Hyperlipidemia, unspecified; E03.9 Hypothyroidism, unspecified; E46 Unspecified protein-calorie malnutrition; D63.0 Anemia in neoplastic disease; E44.1 Mild protein-calorie malnutrition; Z68.33 Body mass index [BMI] 33.0-33.9, adult
CPT/HCPCS: 71010; 71260; 74177; 80048; 80048 91; 80053; 82948; 85025; 85025 91; 85027; 85610; 86618; 86900; 86901; 86920; 88305; 94640; 94640 76; 94799; 97530 GO; 97530 GP; 99202; 99281; 99284; J0133; J0330; J0690; J0696; J2250; J2270; J2405; J2997; J3010; J7030; J7050; P9016; P9040; Q0167; S0020

== ENCOUNTER 2017-01-14 12:23 | Inpatient (IN) | payer BC ==
[~2017-01-14] VITALS: Ht 167.6 cm; Wt 80.6 kg
[~2017-01-14 12:23] MED LIST changes: +COMPAZINE10 MG PO; +COREG3.125 M1 PO; +DIFLUCAN100 MG PO; +DOXYCYCLINE MO100 M1 PO; +DRONABINOL2.5 MG PO; +FLORASTOR250 MG PO; +FUROSEMIDE40 MG PO; +K-DUR20 MEQ PO; +MOTRIN400 MG PO; +MULTI-VITAMIN1 EAC4 PO; +OMEPRAZOLE20 MG PO; +SENNA PLUS TAB1 EACH PO; +SPIRIVA1 INHALATI IH; +TYLENOL REGULA325 MG PO; +VALACYCLOVIR500 MG PO; +ZOFRAN4 MG PO
[2017-01-14 14:05] LABS: ADD MIUA? YES; BILIRUBIN NEGATIVE; BLOOD SMALL; COLOR YELLOW ((YELLOW)); GLUCOSE (STRIP) NEGATIVE; KETONES NEGATIVE; LEUKOCYTES NEGATIVE; NITRITE NEGATIVE; PROTEIN (STRIP) 30; SPECIFIC GRAVITY 1.012 (1.000-1.030); UROBILINOGEN 0.2 MG/DL (0.2-1.0)
[2017-01-14 14:12] LABS: BACTERIA RARE /HPF; EPITHELIAL CELLS RARE /HPF; HYALINE CASTS 0-5 /LPF; MUCUS TRACE /LPF; UCUL ADDED? NO
[2017-01-14 14:25] LABS: HEMATOCRIT 19.4 % (36.0-46.0); MCH 30.4 PG (29.0-34.0); MCHC 33.5 G/DL (30.0-36.0); MCV 90.7 FL (83-99); RBC DIS.WIDTH-CV 15.1 % (11.8-14.6); RBC DIS.WIDTH-SD 46.9 % (39-53); RED BLOOD COUNT 2.14 M/uL (3.80-5.20)
[2017-01-14 14:32] LABS: CHLORIDE 103 mEq/L (99-109); POTASSIUM 3.4 mEq/L (3.7-5.4); SODIUM 139 mEq/L (136-147); WHITE BLOOD COUNT 0.6 K/uL (4.1-10.2)
[2017-01-14 14:33] LABS: INTER. NORMALIZED RATIO 1.2; PTT 30.3 (25-32)
[2017-01-14 14:34] LABS: GLUCOSE 111 mg/dL (70-99)
[2017-01-14 14:35] LABS: ANION GAP 9 MEQ/L (2-14)
[2017-01-14 14:36] LABS: TOTAL BILIRUBIN 1.4 mg/dL (0.0-1.0)
[2017-01-14 14:37] LABS: ALKALINE PHOSPHATASE 57 IU/L (3-129)
[2017-01-14 14:38] LABS: GFR ESTIMATE (CALCULATED) > 59 mL/min/
[2017-01-14 14:39] LABS: UREA NITROGEN (BUN) 15 mg/dL (9-23)
[2017-01-14 14:42] LABS: TROP-I INTERPRETATION NEGATIVE; TROPONIN-I < 0.01 ng/mL (0.0-0.30)
[2017-01-14] MEDS ORDERED: OMEPRAZOLE40 M1 PO (14:56)
[2017-01-14] MEDS ORDERED: CARVEDILOL3.125 MG PO (14:56)
[2017-01-14] MEDS ORDERED: NEULASTA6 MG/0.6 M SC (14:58)
[2017-01-14] MEDS ORDERED: ACYCLOVIR400 MG PO (14:59)
[2017-01-14] MEDS ORDERED: DELTASONE20 M1 PO (15:00)
[2017-01-14] MEDS ORDERED: ALLOPURINOL300 MG PO (15:01)
[2017-01-14] MEDS ORDERED: BACTRIM,SEPT1 TABLET PO (15:02)
[2017-01-14] MEDS ORDERED: CLONAZEPAM0.5 MG PO (15:05)
[2017-01-14] MEDS ORDERED: IMODIUM A-D2 M2 PO (15:07)
[2017-01-14] MEDS ORDERED: SSD25GM TP (15:08)
[2017-01-14 15:45] LABS: ABS NEUTROPHIL COUNT 0; ANISOCYTOSIS 2+; EOSINOPHIL ABS CT 0; IMM.PLATELET FRACTION 6.2 (1-7); INSTRUMENT ABS NEUTROPHIL CT 0 K/uL; MEAN PLAT.VOLUME 12.1 uM^3 (9.5-12.4); MICROCYTOSIS 1+; PLAT.SUFFICIENCY VERY DECREASED; PLATELET COUNT 6 K/uL (156-360)
[2017-01-14 16:55] VITALS: BP 132/67
[2017-01-14 19:10] VITALS: BP 169/89
[2017-01-14 22:42] VITALS: BP 120/58
[2017-01-14 22:44] VITALS: BP 138/62
[2017-01-15] VITALS (17 sets, daily range): BP systolic 106–195; BP diastolic 61–92
[2017-01-15 07:08] LABS: HEMATOCRIT 19.3 % (36.0-46.0); MCH 31.4 PG (29.0-34.0); MCHC 33.7 G/DL (30.0-36.0); MCV 93.2 FL (83-99); RBC DIS.WIDTH-CV 15.1 % (11.8-14.6); RBC DIS.WIDTH-SD 49.5 % (39-53); RED BLOOD COUNT 2.07 M/uL (3.80-5.20)
[2017-01-15 07:14] LABS: ANION GAP 8 MEQ/L (2-14); CHLORIDE 105 MEQ/L (99-109); GFR ESTIMATE (CALCULATED) > 59 mL/min/; GLUCOSE 105 mg/dL (70-99); POTASSIUM 3.3 MEQ/L (3.7-5.4); SAMPLE HEMOLYSIS CHECK 0; SAMPLE ICTERIC CHECK 0; SAMPLE LIPEMIA CHECK 0; SODIUM 140 MEQ/L (136-147); UREA NITROGEN (BUN) 12 mg/dL (9-23)
[2017-01-15 07:19] LABS: WHITE BLOOD COUNT 0.8 K/uL (4.1-10.2)
[2017-01-15 07:20] LABS: ABS NEUTROPHIL COUNT 0; ANISOCYTOSIS 1+; ATYPICAL LYMPHOCYTE 2.3 %; BAND NEUTROPHILS 2.3 % (0-8.0); BASOPHILS 1.2 %; EOSINOPHIL ABS CT 0; IMM.PLATELET FRACTION 5.9 (1-7); INSTRUMENT ABS NEUTROPHIL CT 0.1 K/uL; LYMPHOCYTES 89.5 % (15.0-45.0); MEAN PLAT.VOLUME 13.2 uM^3 (9.5-12.4); MYELOCYTES 1.2 %; NUCLEATED RBC'S 1.2; POIKILOCYTOSIS 1+; SEG.NEUTROPHILS 1.2 % (46.0-76.0); SMUDGE CELLS 1.2
[2017-01-15 07:21] LABS: PLAT.SUFFICIENCY VERY DECREASED; PLATELET COUNT 7 K/uL (156-360)
[2017-01-16] VITALS (19 sets, daily range): BP systolic 123–179; BP diastolic 67–94
[2017-01-16 13:17] LABS: HEMATOCRIT 18.7 % (36.0-46.0); MCH 30.7 PG (29.0-34.0); MCHC 33.7 G/DL (30.0-36.0); MCV 91.2 FL (83-99); RBC DIS.WIDTH-CV 15.8 % (11.8-14.6); RBC DIS.WIDTH-SD 51.1 % (39-53); RED BLOOD COUNT 2.05 M/uL (3.80-5.20)
[2017-01-16 13:32] LABS: WHITE BLOOD COUNT 1.2 K/uL (4.1-10.2)
[2017-01-16 13:34] LABS: ALKALINE PHOSPHATASE 60 IU/L (3-129); ANION GAP 9 MEQ/L (2-14); CHLORIDE 103 MEQ/L (99-109); GFR ESTIMATE (CALCULATED) > 59 mL/min/; GLUCOSE 118 mg/dL (70-99); POTASSIUM 3.3 MEQ/L (3.7-5.4); SAMPLE HEMOLYSIS CHECK 0; SAMPLE ICTERIC CHECK 0; SAMPLE LIPEMIA CHECK 0; SODIUM 139 MEQ/L (136-147); UREA NITROGEN (BUN) 11 mg/dL (9-23)
[2017-01-16 13:54] LABS: ABS NEUTROPHIL COUNT 0.4; ANISOCYTOSIS 2+; BAND NEUTROPHILS 3.3 % (0-8.0); EOSINOPHIL ABS CT 0; IMM.PLATELET FRACTION 3.5 (1-7); INSTRUMENT ABS NEUTROPHIL CT 0.5 K/uL; MACROCYTES 1+; OVALOCYTES 1+; PLAT.SUFFICIENCY DECREASED; SPHEROCYTES 1+; TOXIC GRANULATION 1+
[2017-01-16 14:00] LABS: LYMPHOCYTES 51.7 % (15.0-45.0); MEAN PLAT.VOLUME 9.7 uM^3 (9.5-12.4); PLATELET COUNT 48 K/uL (156-360)
[2017-01-16 16:03] LABS: IMM.RETIC FRACTION 22.2 % (3-19); RETICULOCYTE COUNT 0.6 % (0.5-1.8)
[2017-01-16 16:11] LABS: TOTAL BILIRUBIN 0.9 MG/DL (0.0-1.0)
[2017-01-16 17:02] LABS: ABS NEUTROPHIL COUNT 0.7; ANISOCYTOSIS 1+; EOSINOPHIL ABS CT 0; HEMATOCRIT 17.8 % (36.0-46.0); INSTRUMENT ABS NEUTROPHIL CT 0.4 K/uL; MCH 30.6 PG (29.0-34.0); MCHC 33.7 G/DL (30.0-36.0); MCV 90.8 FL (83-99); MEAN PLAT.VOLUME 9.9 uM^3 (9.5-12.4); MICROCYTOSIS 2+; PLATELET COUNT 53 K/uL (156-360); RBC DIS.WIDTH-CV 15.9 % (11.8-14.6); RBC DIS.WIDTH-SD 50.8 % (39-53); RED BLOOD COUNT 1.96 M/uL (3.80-5.20)
[2017-01-16 17:03] LABS: WHITE BLOOD COUNT 1.6 K/uL (4.1-10.2)
[2017-01-16 17:11] LABS: D-DIMER LATEX NEGATIVE
[2017-01-16 17:39] LABS: SCHISTOCYTES NONE SEEN
[2017-01-16 23:43] LABS: METH RESISTANT S AUREUS PCR NEGATIVE (NEGATIVE)
[2017-01-16 23:46] LABS: PROBE CHECK PASS; SPECIMEN PROCESSING CONTROL PASS
[2017-01-17] VITALS (20 sets, daily range): BP systolic 137–193; BP diastolic 65–94
[2017-01-17 02:03] LABS: CHLORIDE 110 mEq/L (99-109); POTASSIUM 2.8 mEq/L (3.7-5.4); SODIUM 140 mEq/L (136-147)
[2017-01-17 02:06] LABS: GLUCOSE 127 mg/dL (70-99)
[2017-01-17 02:07] LABS: ANION GAP 8 MEQ/L (2-14)
[2017-01-17 02:08] LABS: TOTAL BILIRUBIN 1.4 mg/dL (0.0-1.0)
[2017-01-17 02:09] LABS: ALKALINE PHOSPHATASE 50 IU/L (3-129)
[2017-01-17 02:10] LABS: GFR ESTIMATE (CALCULATED) > 59 mL/min/
[2017-01-17 02:11] LABS: UREA NITROGEN (BUN) 9 mg/dL (9-23)
[2017-01-17 02:12] LABS: INTER. NORMALIZED RATIO 1.2; PROTHROMBIN TIME 12.2 (9.2-11.2); PTT 30.4 (25-32)
[2017-01-17 02:33] LABS: LIPASE < 0 U/L (1.0-51.0)
[2017-01-17 03:00] LABS: FIBRINOGEN 250 MG/DL (160-450)
[2017-01-17 03:05] LABS: HEMATOCRIT 20.8 % (36.0-46.0); HEMATOLOGY COMMENT 1 SMEAR COMPATIBLE; IMM.PLATELET FRACTION 3.7 (1-7); MCH 29.9 PG (29.0-34.0); MCHC 33.7 G/DL (30.0-36.0); MCV 88.9 FL (83-99); MEAN PLAT.VOLUME 9.9 uM^3 (9.5-12.4); PLAT.SUFFICIENCY DECREASED; PLATELET COUNT 36 K/uL (156-360); RBC DIS.WIDTH-CV 15.9 % (11.8-14.6); RBC DIS.WIDTH-SD 49.8 % (39-53); RED BLOOD COUNT 2.34 M/uL (3.80-5.20); WHITE BLOOD COUNT 1.8 K/uL (4.1-10.2)
[2017-01-17 05:53] LABS: FIBRINOGEN 276 MG/DL (160-450)
[2017-01-17 06:03] LABS: INTER. NORMALIZED RATIO 1.1
[2017-01-17 06:06] LABS: HEMATOCRIT 22.2 % (36.0-46.0); IMM.PLATELET FRACTION 4.4 (1-7); MCH 31.3 PG (29.0-34.0); MCHC 35.1 G/DL (30.0-36.0); MCV 89.2 FL (83-99); MEAN PLAT.VOLUME 10.7 uM^3 (9.5-12.4); RBC DIS.WIDTH-CV 15.9 % (11.8-14.6); RBC DIS.WIDTH-SD 50.4 % (39-53); RED BLOOD COUNT 2.49 M/uL (3.80-5.20); WHITE BLOOD COUNT 3.4 K/uL (4.1-10.2)
[2017-01-17 06:08] LABS: PLATELET COUNT 50 K/uL (156-360)
[2017-01-17 06:33] LABS: ALKALINE PHOSPHATASE 60 IU/L (3-129); AMYLASE < 10 IU/L (1-118); ANION GAP 9 MEQ/L (2-14); CHLORIDE 107 MEQ/L (99-109); GFR ESTIMATE (CALCULATED) > 59 mL/min/; GLUCOSE 139 mg/dL (70-99); MAGNESIUM 1.7 mg/dl (1.3-2.7); SAMPLE HEMOLYSIS CHECK 0; SAMPLE ICTERIC CHECK 0; SAMPLE LIPEMIA CHECK 0; SODIUM 142 MEQ/L (136-147); TOTAL BILIRUBIN 0.9 MG/DL (0.0-1.0); UREA NITROGEN (BUN) 11 mg/dL (9-23)
[2017-01-17 06:36] LABS: POTASSIUM 4.1 MEQ/L (3.7-5.4)
[2017-01-17 06:37] LABS: LIPASE < 3 U/L (1.0-51.0)
[2017-01-17 08:15] LABS: ABS NEUTROPHIL COUNT 2.6; ATYPICAL LYMPHOCYTE 5.3 %; BAND NEUTROPHILS 11.4 % (0-8.0); EOSINOPHIL ABS CT 0; INSTRUMENT ABS NEUTROPHIL CT 2.7 K/uL; NUCLEATED RBC'S 1.8; PLAT.SUFFICIENCY DECREASED
[2017-01-17 08:23] LABS: LYMPHOCYTES 11.4 % (15.0-45.0); SEG.NEUTROPHILS 65.8 % (46.0-76.0)
[2017-01-17 10:49] LABS: GFR ESTIMATE (CALCULATED) > 59 mL/min/; VANCOMYCIN, TROUGH 16.2 MCG/ML (10-20)
[2017-01-17 12:24] LABS: HEMATOCRIT 23.5 % (36.0-46.0); MCH 30.5 PG (29.0-34.0); MCV 89.7 FL (83-99); MEAN PLAT.VOLUME 10.4 uM^3 (9.5-12.4); NRBC (%) 0.4 /100 WBC (0-0); PLATELET COUNT 65 K/uL (156-360); RBC DIS.WIDTH-CV 16.2 % (11.8-14.6); RBC DIS.WIDTH-SD 51.4 % (39-53); RED BLOOD COUNT 2.62 M/uL (3.80-5.20); WHITE BLOOD COUNT 7.8 K/uL (4.1-10.2)
[2017-01-17 18:29] LABS: HEMATOCRIT 22.8 % (36.0-46.0); MCH 30.8 PG (29.0-34.0); MCHC 34.2 G/DL (30.0-36.0); MCV 90.1 FL (83-99); MEAN PLAT.VOLUME 10.3 uM^3 (9.5-12.4); NRBC (%) 0.8 /100 WBC (0-0); PLATELET COUNT 69 K/uL (156-360); RBC DIS.WIDTH-CV 16.1 % (11.8-14.6); RBC DIS.WIDTH-SD 51.4 % (39-53); RED BLOOD COUNT 2.53 M/uL (3.80-5.20); WHITE BLOOD COUNT 11.1 K/uL (4.1-10.2)
[2017-01-18] VITALS (12 sets, daily range): BP systolic 00–184; BP diastolic 00–97
[2017-01-18 01:18] LABS: HEMATOCRIT 18.7 % (36.0-46.0); MCH 30.2 PG (29.0-34.0); MCHC 33.2 G/DL (30.0-36.0); MCV 91.2 FL (83-99); NRBC (%) 0.9 /100 WBC (0-0); PLATELET COUNT 57 K/uL (156-360); RBC DIS.WIDTH-CV 16.2 % (11.8-14.6); RBC DIS.WIDTH-SD 52.2 % (39-53); RED BLOOD COUNT 2.05 M/uL (3.80-5.20); WHITE BLOOD COUNT 9.9 K/uL (4.1-10.2)
[2017-01-18 08:20] LABS: HEMATOCRIT 25.4 % (36.0-46.0); MCH 30.5 PG (29.0-34.0); MCHC 33.1 G/DL (30.0-36.0); MCV 92.4 FL (83-99); MEAN PLAT.VOLUME 10.3 uM^3 (9.5-12.4); NRBC (%) 1.3 /100 WBC (0-0); PLATELET COUNT 68 K/uL (156-360); WHITE BLOOD COUNT 14.6 K/uL (4.1-10.2)
[2017-01-18 08:24] LABS: INTER. NORMALIZED RATIO 1.1; PROTHROMBIN TIME 11.1 (9.2-11.2)
[2017-01-18 08:28] LABS: RED BLOOD COUNT 2.75 M/uL (3.80-5.20)
[2017-01-18 08:40] LABS: ALKALINE PHOSPHATASE 74 IU/L (3-129); ANION GAP 7 MEQ/L (2-14); CHLORIDE 113 MEQ/L (99-109); GFR ESTIMATE (CALCULATED) > 59 mL/min/; SAMPLE HEMOLYSIS CHECK 0; SAMPLE ICTERIC CHECK 0; SAMPLE LIPEMIA CHECK 0; SODIUM 145 MEQ/L (136-147); UREA NITROGEN (BUN) 10 mg/dL (9-23)
[2017-01-18 08:44] LABS: GLUCOSE 88 mg/dL (70-99); TOTAL BILIRUBIN 1.1 MG/DL (0.0-1.0)
[2017-01-18 09:40] LABS: ABS NEUTROPHIL COUNT 9.8; EOSINOPHIL ABS CT 0; INSTRUMENT ABS NEUTROPHIL CT 7.4 K/uL
[2017-01-18 09:42] LABS: ANISOCYTOSIS 2+; PLAT.SUFFICIENCY DECREASED; POLYCHROMASIA 1+
[2017-01-18 12:44] LABS: HEMATOCRIT 28.2 % (36.0-46.0); MCH 30.3 PG (29.0-34.0); MCV 91.9 FL (83-99); MEAN PLAT.VOLUME 10.5 uM^3 (9.5-12.4); NRBC (%) 1.5 /100 WBC (0-0); PLATELET COUNT 61 K/uL (156-360); RBC DIS.WIDTH-CV 15.6 % (11.8-14.6); RBC DIS.WIDTH-SD 49.6 % (39-53); RED BLOOD COUNT 3.07 M/uL (3.80-5.20); WHITE BLOOD COUNT 11.3 K/uL (4.1-10.2)
[2017-01-18 18:56] LABS: MCH 30.9 PG (29.0-34.0); MCHC 33.3 G/DL (30.0-36.0); MCV 92.8 FL (83-99); MEAN PLAT.VOLUME 10.4 uM^3 (9.5-12.4); NRBC (%) 1.1 /100 WBC (0-0); PLATELET COUNT 71 K/uL (156-360); RBC DIS.WIDTH-SD 51.3 % (39-53); RED BLOOD COUNT 2.91 M/uL (3.80-5.20); WHITE BLOOD COUNT 15.3 K/uL (4.1-10.2)
[2017-01-19] VITALS: BP 165/74
[2017-01-19 04:00] VITALS: BP 147/72
[2017-01-19 06:08] LABS: HEMATOCRIT 25.8 % (36.0-46.0); MCH 30.5 PG (29.0-34.0); MCHC 32.6 G/DL (30.0-36.0); MCV 93.8 FL (83-99); MEAN PLAT.VOLUME 10.6 uM^3 (9.5-12.4); NRBC (%) 1.3 /100 WBC (0-0); PLATELET COUNT 63 K/uL (156-360); RBC DIS.WIDTH-CV 16.1 % (11.8-14.6); RBC DIS.WIDTH-SD 52.3 % (39-53); RED BLOOD COUNT 2.75 M/uL (3.80-5.20); WHITE BLOOD COUNT 12.4 K/uL (4.1-10.2)
[2017-01-19 06:35] LABS: ALKALINE PHOSPHATASE 79 IU/L (3-129); ANION GAP 5 MEQ/L (2-14); CHLORIDE 115 MEQ/L (99-109); GFR ESTIMATE (CALCULATED) > 59 mL/min/; GLUCOSE 87 mg/dL (70-99); INTER. NORMALIZED RATIO 1.1; MAGNESIUM 1.8 mg/dl (1.3-2.7); PROTHROMBIN TIME 11.6 (9.2-11.2); SAMPLE HEMOLYSIS CHECK 0; SAMPLE ICTERIC CHECK 0; SAMPLE LIPEMIA CHECK 0; SODIUM 146 MEQ/L (136-147); UREA NITROGEN (BUN) 9 mg/dL (9-23)
[2017-01-19 06:38] LABS: POTASSIUM 4.9 MEQ/L (3.7-5.4); TOTAL BILIRUBIN 0.6 MG/DL (0.0-1.0)
[2017-01-19 07:27] LABS: ABS NEUTROPHIL COUNT 9.3; ATYPICAL LYMPHOCYTE 6.1 %; BAND NEUTROPHILS 4.4 % (0-8.0); EOSINOPHIL ABS CT 0; INSTRUMENT ABS NEUTROPHIL CT 7.3 K/uL; METAMYELOCYTES 4.4 %; MYELOCYTES 0.9 %; NUCLEATED RBC'S 1.8; OVALOCYTES 1+; PLAT.SUFFICIENCY DECREASED; TEAR DROP CELLS 1+; TOXIC GRANULATION 3+
[2017-01-19 07:34] LABS: LYMPHOCYTES 8.8 % (15.0-45.0)
[2017-01-19 08:00] VITALS: BP 186/93
[2017-01-19 17:55] LABS: HEMATOCRIT 29.3 % (36.0-46.0); MCH 30.7 PG (29.0-34.0); MCHC 33.1 G/DL (30.0-36.0); MCV 92.7 FL (83-99); MEAN PLAT.VOLUME 10.5 uM^3 (9.5-12.4); PLATELET COUNT 81 K/uL (156-360); RBC DIS.WIDTH-CV 15.9 % (11.8-14.6); RBC DIS.WIDTH-SD 51.2 % (39-53); RED BLOOD COUNT 3.16 M/uL (3.80-5.20); WHITE BLOOD COUNT 13.4 K/uL (4.1-10.2)
[2017-01-19 18:33] LABS: ABS NEUTROPHIL COUNT 12.3; ATYPICAL LYMPHOCYTE 1.7 %; EOSINOPHIL ABS CT 0; INSTRUMENT ABS NEUTROPHIL CT 9.6 K/uL; LYMPHOCYTES 3.5 % (15.0-45.0); METAMYELOCYTES 1.8 %; NUCLEATED RBC'S 0.9; PLAT.SUFFICIENCY DECREASED; SEG.NEUTROPHILS 85.1 % (46.0-76.0); TOXIC GRANULATION 3+
[2017-01-19 21:00] VITALS: BP 110/60
[2017-01-19 22:00] VITALS: BP 110/60
[2017-01-20 06:42] LABS: HEMATOCRIT 27.1 % (36.0-46.0); MCH 31.1 PG (29.0-34.0); MCHC 33.2 G/DL (30.0-36.0); MCV 93.8 FL (83-99); MEAN PLAT.VOLUME 10.3 uM^3 (9.5-12.4); NRBC (%) 1.2 /100 WBC (0-0); PLATELET COUNT 83 K/uL (156-360); RBC DIS.WIDTH-CV 16.2 % (11.8-14.6); RBC DIS.WIDTH-SD 52.2 % (39-53); RED BLOOD COUNT 2.89 M/uL (3.80-5.20); WHITE BLOOD COUNT 12.3 K/uL (4.1-10.2)
[2017-01-20 06:46] LABS: INTER. NORMALIZED RATIO 1.1; PROTHROMBIN TIME 11.7 (9.2-11.2)
[2017-01-20 07:16] LABS: ABS NEUTROPHIL COUNT 8.2; ANISOCYTOSIS 2+; BAND NEUTROPHILS 6.1 % (0-8.0); BASOPHILS 1.7 %; EOSINOPHIL ABS CT 0; INSTRUMENT ABS NEUTROPHIL CT 5.9 K/uL; LYMPHOCYTES 16.5 % (15.0-45.0); METAMYELOCYTES 3.5 %; MICROCYTOSIS 1+; MYELOCYTES 4.3 %; NUCLEATED RBC'S 2.6; PLAT.SUFFICIENCY DECREASED; POLYCHROMASIA 1+
[2017-01-20 07:18] LABS: ALKALINE PHOSPHATASE 77 IU/L (3-129); ANION GAP 8 MEQ/L (2-14); CHLORIDE 109 MEQ/L (99-109); GFR ESTIMATE (CALCULATED) > 59 mL/min/; GLUCOSE 94 mg/dL (70-99); MAGNESIUM 1.7 mg/dl (1.3-2.7); SAMPLE HEMOLYSIS CHECK 0; SAMPLE ICTERIC CHECK 0; SAMPLE LIPEMIA CHECK 0; SODIUM 143 MEQ/L (136-147); TOTAL BILIRUBIN 0.7 MG/DL (0.0-1.0); UREA NITROGEN (BUN) 8 mg/dL (9-23)
[2017-01-20 07:23] LABS: POTASSIUM 3.3 MEQ/L (3.7-5.4); SEG.NEUTROPHILS 60.9 % (46.0-76.0)
[2017-01-20 07:50] VITALS: BP 142/70
[2017-01-20 10:48] VITALS: BP 138/72
[2017-01-20 16:10] VITALS: BP 141/83
[2017-01-20 19:10] VITALS: BP 122/64
[2017-01-21 00:59] VITALS: BP 135/80
[2017-01-21 07:18] LABS: MAGNESIUM 1.6 mg/dl (1.3-2.7)
[2017-01-21 08:18] VITALS: BP 183/103
[2017-01-21 11:26] VITALS: BP 135/74
[2017-01-21 23:01] VITALS: BP 130/74
[2017-01-22 07:24] VITALS: BP 174/90
[2017-01-22 07:59] LABS: HEMATOCRIT 29.5 % (36.0-46.0); MCH 31.2 PG (29.0-34.0); MCHC 33.2 G/DL (30.0-36.0); MCV 93.9 FL (83-99); MEAN PLAT.VOLUME 9.5 uM^3 (9.5-12.4); NRBC (%) 0.8 /100 WBC (0-0); RBC DIS.WIDTH-SD 51.9 % (39-53); RED BLOOD COUNT 3.14 M/uL (3.80-5.20); WHITE BLOOD COUNT 9.9 K/uL (4.1-10.2)
[2017-01-22 08:00] LABS: PLATELET COUNT 121 K/uL (156-360)
[2017-01-22 08:08] LABS: ANION GAP 8 MEQ/L (2-14); CHLORIDE 101 MEQ/L (99-109); GFR ESTIMATE (CALCULATED) > 59 mL/min/; GLUCOSE 104 mg/dL (70-99); MAGNESIUM 1.5 mg/dl (1.3-2.7); POTASSIUM 3.4 MEQ/L (3.7-5.4); SAMPLE HEMOLYSIS CHECK 0; SAMPLE ICTERIC CHECK 0; SAMPLE LIPEMIA CHECK 0; SODIUM 138 MEQ/L (136-147); UREA NITROGEN (BUN) 9 mg/dL (9-23)
[2017-01-22 09:47] LABS: ABS NEUTROPHIL COUNT 6.2; ANISOCYTOSIS 1+; BAND NEUTROPHILS 1.7 % (0-8.0); EOSINOPHIL ABS CT 0; INSTRUMENT ABS NEUTROPHIL CT 4.7 K/uL; LYMPHOCYTES 20.7 % (15.0-45.0); METAMYELOCYTES 6.9 %; MICROCYTOSIS 1+; MYELOCYTES 2.6 %; NUCLEATED RBC'S 2.6; PLAT.SUFFICIENCY DECREASED; SEG.NEUTROPHILS 61.2 % (46.0-76.0); SMUDGE CELLS 1.7
[2017-01-22 10:30] VITALS: BP 143/64
[2017-01-22 15:42] VITALS: BP 121/58
[2017-01-22 20:07] VITALS: BP 159/78
[2017-01-22 23:59] VITALS: BP 158/77
[2017-01-23 04:05] VITALS: BP 177/83
[2017-01-23 07:24] LABS: HEMATOCRIT 28.6 % (36.0-46.0); MCH 31.2 PG (29.0-34.0); MCHC 32.9 G/DL (30.0-36.0); MEAN PLAT.VOLUME 9.8 uM^3 (9.5-12.4); NRBC (%) 0.6 /100 WBC (0-0); PLATELET COUNT 146 K/uL (156-360); RBC DIS.WIDTH-CV 17.2 % (11.8-14.6); RBC DIS.WIDTH-SD 53.9 % (39-53); RED BLOOD COUNT 3.01 M/uL (3.80-5.20); WHITE BLOOD COUNT 8.2 K/uL (4.1-10.2)
[2017-01-23 07:52] LABS: ANION GAP 6 MEQ/L (2-14); CHLORIDE 102 MEQ/L (99-109); GFR ESTIMATE (CALCULATED) > 59 mL/min/; GLUCOSE 102 mg/dL (70-99); MAGNESIUM 1.6 mg/dl (1.3-2.7); POTASSIUM 3.8 MEQ/L (3.7-5.4); SAMPLE HEMOLYSIS CHECK 0; SAMPLE ICTERIC CHECK 0; SAMPLE LIPEMIA CHECK 0; SODIUM 138 MEQ/L (136-147); UREA NITROGEN (BUN) 11 mg/dL (9-23)
[2017-01-23 08:02] VITALS: BP 172/81
[2017-01-23 11:19] VITALS: BP 134/74
[2017-01-23 14:28] VITALS: BP 146/76
[2017-01-23 18:54] VITALS: BP 139/76
[2017-01-23 22:59] VITALS: BP 139/72
[2017-01-24 02:02] VITALS: BP 156/83
[2017-01-24 09:16] VITALS: BP 174/85
[2017-01-24 12:00] VITALS: BP 173/82
[2017-01-24] MEDS ORDERED: FLUCONAZOLE200 MG PO (15:44)
[2017-01-24] MEDS ORDERED: CARVEDILOL6.25 MG PO (15:45)
[2017-01-24] MEDS ORDERED: PREDNISONE10 MG PO (15:49)
[2017-01-24] MEDS ORDERED: NORCO 5/3251 TABLET PO (15:50)
== END 2017-01-24 19:48 | DRG 808 ==
LOC: EME → EDBD 12:23 → 5EAST 15:05 → EDOF 15:05 → 5EAST 15:05 → 4WEST 15:05 → 5EAST 16:42 → 4WEST 16:51 → 5EAST 01-19 21:10
PROVIDERS: Emergency Medicine; Family Medicine; Internal Medicine; Nurse Practitioner Adult Health
PROC: 30233R1 Transfusion of Nonautologous Platelets into Peripheral Vein, Percutaneous Approach (ICD-10-PCS; principal; 2017-01-15)
PROC: 30233N1 Transfusion of Nonautologous Red Blood Cells into Peripheral Vein, Percutaneous Approach (ICD-10-PCS; 2017-01-15)
DX: D70.9 Neutropenia, unspecified (principal); R50.81 Fever presenting with conditions classified elsewhere; D62 Acute posthemorrhagic anemia; K66.1 Hemoperitoneum; R18.8 Other ascites; L76.34 Postprocedural seroma of skin and subcutaneous tissue following other procedure; R62.7 Adult failure to thrive; C85.90 Non-Hodgkin lymphoma, unspecified, unspecified site; D61.818 Other pancytopenia; B37.81 Candidal esophagitis; B37.0 Candidal stomatitis; E53.8 Deficiency of other specified B group vitamins; E03.9 Hypothyroidism, unspecified; E78.1 Pure hyperglyceridemia; E78.5 Hyperlipidemia, unspecified; E87.6 Hypokalemia; I10 Essential (primary) hypertension; J44.9 Chronic obstructive pulmonary disease, unspecified; F43.23 Adjustment disorder with mixed anxiety and depressed mood; G43.909 Migraine, unspecified, not intractable, without status migrainosus; Z86.72 Personal history of thrombophlebitis; Z87.11 Personal history of peptic ulcer disease; Z88.0 Allergy status to penicillin; Z87.891 Personal history of nicotine dependence
CPT/HCPCS: 71010; 71275; 74174; 74176; 76881; 80048; 80053; 80202; 81003; 82150; 82247; 82565; 83010 90; 83605; 83615; 83690; 83735; 84100; 84484; 85025; 85025 91; 85027; 85045; 85378; 85384; 85610; 85730; 86900; 86901; 86920; 87040; 87641; 94640; 94640 76; 94799; 97530 GP; 99202; 99281; 99285; J0610; J0692; J0780; J1170; J1447; J1450; J1940; J2270; J2405; J2930; J3370; J3475; J3480; J7030; J7050; J7512; P9016; P9035; Q0167

== ENCOUNTER 2017-05-12 11:52 | Inpatient (IN) | payer BC, OTHER ==
[~2017-05-12] VITALS: Ht 167.6 cm; Wt 74.5 kg
[~2017-05-12 11:52] MED LIST changes: +ACYCLOVIR400 MG PO; +ALLOPURINOL300 MG PO; +BACTRIM,SEPT1 TABLET PO; +CARVEDILOL3.125 MG PO; +CARVEDILOL6.25 MG PO; +CENTRUM WOMEN1 EACH PO; +CLONAZEPAM0.5 MG PO; +DELTASONE20 M1 PO; +FLUCONAZOLE200 MG PO; +IMODIUM A-D2 M2 PO; -MULTI-VITAMIN1 EAC4 PO; +NEULASTA6 MG/0.6 M SC; +PREDNISONE10 MG PO; +SSD25GM TP
[2017-05-12 13:08] LABS: EOSINOPHIL (%) 0.2 % (0-5); HEMATOCRIT 32.3 % (36.0-46.0); IMMATURE GRANULOCYTE (%) 1.5 % (0.0-0.7); IMMATURE GRANULOCYTE COUNT 0.1 K/uL; INSTRUMENT ABS NEUTROPHIL CT 4.1 K/uL; LYMPHOCYTE COUNT 0.4 K/uL (1.0-2.8); MCH 34.4 PG (29.0-34.0); MCHC 32.2 G/DL (30.0-36.0); MEAN PLAT.VOLUME 8.7 uM^3 (9.5-12.4); MONOCYTE (%) 12.3 % (3-12); MONOCYTE COUNT 0.6 K/uL (0-0.8); NEUTROPHIL (%) 78.9 % (45-76); NEUTROPHIL COUNT 4.1 K/uL (1.8-6.4); PLATELET COUNT 93 K/uL (156-360); RBC DIS.WIDTH-CV 14.1 % (11.8-14.6); RBC DIS.WIDTH-SD 55.6 % (39-53); RED BLOOD COUNT 3.02 M/uL (3.80-5.20); WHITE BLOOD COUNT 5.2 K/uL (4.1-10.2)
[2017-05-12 13:16] LABS: ADD MIUA? YES; BILIRUBIN NEGATIVE; BLOOD SMALL; GLUCOSE (STRIP) NEGATIVE; KETONES NEGATIVE; LEUKOCYTES SMALL; NITRITE NEGATIVE; PROTEIN (STRIP) 30; SPECIFIC GRAVITY 1.026 (1.000-1.030); UROBILINOGEN 0.2 MG/DL (0.2-1.0)
[2017-05-12 13:16] LABS: CHLORIDE 106 mEq/L (99-109); POTASSIUM 3.7 mEq/L (3.7-5.4); SODIUM 141 mEq/L (136-147)
[2017-05-12 13:17] LABS: COLOR DK YELLOW ((YELLOW))
[2017-05-12 13:18] LABS: GLUCOSE 112 mg/dL (70-99)
[2017-05-12 13:19] LABS: ANION GAP 9 MEQ/L (2-14)
[2017-05-12 13:20] LABS: TOTAL BILIRUBIN 0.7 mg/dL (0.0-1.0)
[2017-05-12 13:22] LABS: ALKALINE PHOSPHATASE 88 IU/L (3-129); GFR ESTIMATE (CALCULATED) > 59 mL/min/
[2017-05-12 13:23] LABS: UREA NITROGEN (BUN) 19 mg/dL (9-23)
[2017-05-12 13:25] LABS: BACTERIA NONE SEEN /HPF; EPITHELIAL CELLS 1+ /HPF; HYALINE CASTS 0-5 /LPF; MUCUS 2+ /LPF; UCUL ADDED? YES
[2017-05-12] MEDS ORDERED: NORCO 5/3251 TABLET PO (15:54)
[2017-05-12] MEDS ORDERED: SERTRALINE HCL50 MG PO (15:56)
[2017-05-12] MEDS ORDERED: ZOFRAN8 MG PO (15:56)
[2017-05-12] MEDS ORDERED: SYNTHROID50 MCG PO (15:56)
[2017-05-12] MEDS ORDERED: CYANOCOBALAM1000 MCG PO (15:56)
[2017-05-12 18:32] VITALS: BP 135/74
[2017-05-12 19:01] LABS: INFLUENZA A VIRAL ANTIGEN NEGATIVE; INFLUENZA B VIRAL ANTIGEN NEGATIVE
[2017-05-12 23:37] VITALS: BP 98/54
[2017-05-13 06:06] LABS: HEMATOCRIT 29.3 % (36.0-46.0); MCH 35.7 PG (29.0-34.0); MCHC 32.8 G/DL (30.0-36.0); MCV 108.9 FL (83-99); MEAN PLAT.VOLUME 9.9 uM^3 (9.5-12.4); PLATELET COUNT 91 K/uL (156-360); RBC DIS.WIDTH-CV 14.2 % (11.8-14.6); RBC DIS.WIDTH-SD 57.4 % (39-53); RED BLOOD COUNT 2.69 M/uL (3.80-5.20); WHITE BLOOD COUNT 4.4 K/uL (4.1-10.2)
[2017-05-13 06:56] LABS: ANION GAP 10 MEQ/L (2-14); CHLORIDE 110 MEQ/L (99-109); GFR ESTIMATE (CALCULATED) > 59 mL/min/; GLUCOSE 123 mg/dL (70-99); POTASSIUM 4.1 MEQ/L (3.7-5.4); SAMPLE HEMOLYSIS CHECK 0; SAMPLE ICTERIC CHECK 0; SAMPLE LIPEMIA CHECK 0; SODIUM 143 MEQ/L (136-147); UREA NITROGEN (BUN) 13 mg/dL (9-23)
[2017-05-13 07:28] VITALS: BP 133/61
[2017-05-13 15:10] VITALS: BP 130/62
[2017-05-13 22:47] VITALS: BP 134/64
[2017-05-14 07:25] VITALS: BP 158/74
[2017-05-14 15:40] VITALS: BP 145/74
[2017-05-14 16:23] LABS: EOSINOPHIL (%) 0.6 % (0-5); HEMATOCRIT 27.5 % (36.0-46.0); IMMATURE GRANULOCYTE (%) 2.5 % (0.0-0.7); IMMATURE GRANULOCYTE COUNT 0.1 K/uL; INSTRUMENT ABS NEUTROPHIL CT 2.2 K/uL; LYMPHOCYTE COUNT 0.4 K/uL (1.0-2.8); MCH 35.4 PG (29.0-34.0); MCHC 33.1 G/DL (30.0-36.0); MEAN PLAT.VOLUME 9.6 uM^3 (9.5-12.4); MONOCYTE (%) 17.4 % (3-12); MONOCYTE COUNT 0.6 K/uL (0-0.8); NEUTROPHIL COUNT 2.2 K/uL (1.8-6.4); PLATELET COUNT 70 K/uL (156-360); RBC DIS.WIDTH-CV 14.4 % (11.8-14.6); RBC DIS.WIDTH-SD 56.1 % (39-53); RED BLOOD COUNT 2.57 M/uL (3.80-5.20); WHITE BLOOD COUNT 3.2 K/uL (4.1-10.2)
[2017-05-14 16:36] LABS: ALKALINE PHOSPHATASE 128 IU/L (3-129); ANION GAP 8 MEQ/L (2-14); CHLORIDE 111 MEQ/L (99-109); GFR ESTIMATE (CALCULATED) > 59 mL/min/; GLUCOSE 116 mg/dL (70-99); SAMPLE HEMOLYSIS CHECK 0; SAMPLE ICTERIC CHECK 0; SAMPLE LIPEMIA CHECK 0; SODIUM 141 MEQ/L (136-147); TOTAL BILIRUBIN 0.7 MG/DL (0.0-1.0); UREA NITROGEN (BUN) 11 mg/dL (9-23)
[2017-05-14 16:37] LABS: POTASSIUM 3.2 MEQ/L (3.7-5.4)
[2017-05-14 23:07] VITALS: BP 138/80
[2017-05-15 07:29] VITALS: BP 148/70
[2017-05-15 11:59] LABS: C DIFF TOXIN POSITIVE (NEGATIVE)
[2017-05-15 12:04] LABS: PROBE CHECK PASS
[2017-05-15 16:23] VITALS: BP 160/80
[2017-05-15 23:15] VITALS: BP 142/76
[2017-05-16 05:46] LABS: HEMATOCRIT 28.4 % (36.0-46.0); MCH 33.6 PG (29.0-34.0); MCHC 31.7 G/DL (30.0-36.0); MEAN PLAT.VOLUME 10.1 uM^3 (9.5-12.4); PLATELET COUNT 66 K/uL (156-360); RBC DIS.WIDTH-CV 14.1 % (11.8-14.6); RBC DIS.WIDTH-SD 55.2 % (39-53); RED BLOOD COUNT 2.68 M/uL (3.80-5.20); WHITE BLOOD COUNT 2.4 K/uL (4.1-10.2)
[2017-05-16 06:18] LABS: ANION GAP 8 MEQ/L (2-14); CHLORIDE 116 MEQ/L (99-109); GFR ESTIMATE (CALCULATED) > 59 mL/min/; GLUCOSE 124 mg/dL (70-99); SAMPLE HEMOLYSIS CHECK 0; SAMPLE ICTERIC CHECK 0; SAMPLE LIPEMIA CHECK 0; SODIUM 145 MEQ/L (136-147); UREA NITROGEN (BUN) 9 mg/dL (9-23)
[2017-05-16 06:23] LABS: ABS NEUTROPHIL COUNT 1.9; ANISOCYTOSIS 1+; ATYPICAL LYMPHOCYTE 0.9 %; BAND NEUTROPHILS 0.9 % (0-8.0); BASOPHILS 0.9 %; EOSINOPHIL ABS CT 0; EOSINOPHILS 0.8 % (0-5.0); INSTRUMENT ABS NEUTROPHIL CT 1.5 K/uL; LYMPHOCYTES 7.9 % (15.0-45.0); MACROCYTES 1+; METAMYELOCYTES 0.9 %; PLAT.SUFFICIENCY DECREASED; SEG.NEUTROPHILS 76.3 % (46.0-76.0); SMUDGE CELLS 11.4
[2017-05-16 07:43] VITALS: BP 130/66
[2017-05-16 15:34] VITALS: BP 122/69
[2017-05-17 03:38] VITALS: BP 143/77
[2017-05-17 06:32] LABS: HEMATOCRIT 26.8 % (36.0-46.0); MCH 34.7 PG (29.0-34.0); MCHC 32.5 G/DL (30.0-36.0); MCV 106.8 FL (83-99); MEAN PLAT.VOLUME 9.9 uM^3 (9.5-12.4); PLATELET COUNT 54 K/uL (156-360); RBC DIS.WIDTH-CV 14.2 % (11.8-14.6); RBC DIS.WIDTH-SD 55.8 % (39-53); RED BLOOD COUNT 2.51 M/uL (3.80-5.20); WHITE BLOOD COUNT 2.2 K/uL (4.1-10.2)
[2017-05-17 07:03] LABS: ANION GAP 9 MEQ/L (2-14); CHLORIDE 115 MEQ/L (99-109); GFR ESTIMATE (CALCULATED) > 59 mL/min/; GLUCOSE 119 mg/dL (70-99); IRON 32 MCG/DL (35-150); SAMPLE HEMOLYSIS CHECK 0; SAMPLE ICTERIC CHECK 0; SAMPLE LIPEMIA CHECK 0; SODIUM 144 MEQ/L (136-147); UREA NITROGEN (BUN) 7 mg/dL (9-23)
[2017-05-17 07:10] LABS: ABS NEUTROPHIL COUNT 1.5; ATYPICAL LYMPHOCYTE 2.9 %; BAND NEUTROPHILS 1.9 % (0-8.0); BASOPHILS 0.9 %; EOSINOPHIL ABS CT 0; INSTRUMENT ABS NEUTROPHIL CT 1.1 K/uL; SEG.NEUTROPHILS 66.7 % (46.0-76.0); SMUDGE CELLS 5.7
[2017-05-17 07:52] LABS: FERRITIN > 1500 NG/ML (10-291)
[2017-05-17 07:59] VITALS: BP 169/75
[2017-05-17 16:02] VITALS: BP 146/79
[2017-05-18 01:02] VITALS: BP 130/62
[2017-05-18 06:14] LABS: HEMATOCRIT 26.8 % (36.0-46.0); MCH 33.9 PG (29.0-34.0); MCHC 31.3 G/DL (30.0-36.0); MCV 108.1 FL (83-99); NRBC (%) 0.8 /100 WBC (0-0); RBC DIS.WIDTH-CV 14.2 % (11.8-14.6); RBC DIS.WIDTH-SD 56.5 % (39-53); RED BLOOD COUNT 2.48 M/uL (3.80-5.20); WHITE BLOOD COUNT 2.6 K/uL (4.1-10.2)
[2017-05-18 06:43] LABS: ANION GAP 7 MEQ/L (2-14); CHLORIDE 114 MEQ/L (99-109); GFR ESTIMATE (CALCULATED) > 59 mL/min/; GLUCOSE 109 mg/dL (70-99); MAGNESIUM 1.2 mg/dl (1.3-2.7); SAMPLE HEMOLYSIS CHECK 0; SAMPLE ICTERIC CHECK 0; SAMPLE LIPEMIA CHECK 0; SODIUM 143 MEQ/L (136-147); UREA NITROGEN (BUN) 7 mg/dL (9-23)
[2017-05-18 06:51] LABS: ABS NEUTROPHIL COUNT 1.7; ANISOCYTOSIS 1+; ATYPICAL LYMPHOCYTE 7.3 %; BAND NEUTROPHILS 0.9 % (0-8.0); BASOPHILS 0.9 %; EOSINOPHIL ABS CT 0.1; EOSINOPHILS 4.6 % (0-5.0); IMM.PLATELET FRACTION 2.3 (1-7); INSTRUMENT ABS NEUTROPHIL CT 1.4 K/uL; LYMPHOCYTES 8.2 % (15.0-45.0); MACROCYTES 1+; MEAN PLAT.VOLUME 9.1 uM^3 (9.5-12.4); METAMYELOCYTES 0.9 %; MYELOCYTES 2.7 %; NUCLEATED RBC'S 0.9; PLAT.SUFFICIENCY DECREASED; PLATELET COUNT 50 K/uL (156-360); POLYCHROMASIA 1+; SEG.NEUTROPHILS 64.5 % (46.0-76.0)
[2017-05-18 08:19] VITALS: BP 142/88
[2017-05-18 16:30] VITALS: BP 145/80
[2017-05-19 05:52] LABS: HEMATOCRIT 27.9 % (36.0-46.0); MCH 34.4 PG (29.0-34.0); MCHC 31.2 G/DL (30.0-36.0); MCV 110.3 FL (83-99); NRBC (%) 0.5 /100 WBC (0-0); PLATELET COUNT 54 K/uL (156-360); RBC DIS.WIDTH-CV 14.5 % (11.8-14.6); RBC DIS.WIDTH-SD 57.3 % (39-53); RED BLOOD COUNT 2.53 M/uL (3.80-5.20); WHITE BLOOD COUNT 4.2 K/uL (4.1-10.2)
[2017-05-19 06:58] LABS: ABS NEUTROPHIL COUNT 2.7; ATYPICAL LYMPHOCYTE 4.4 %; BASOPHILS 0.9 %; EOSINOPHIL ABS CT 0.1; EOSINOPHILS 3.5 % (0-5.0); INSTRUMENT ABS NEUTROPHIL CT 2.3 K/uL; LYMPHOCYTES 13.3 % (15.0-45.0); METAMYELOCYTES 4.4 %; MYELOCYTES 2.7 %; OVALOCYTES 1+; PLAT.SUFFICIENCY DECREASED; POIKILOCYTOSIS 1+; SEG.NEUTROPHILS 56.6 % (46.0-76.0); TEAR DROP CELLS 1+
[2017-05-19 08:24] VITALS: BP 163/87
[2017-05-19 17:00] VITALS: BP 149/85
[2017-05-19 18:14] LABS: HEMATOCRIT 30.3 % (36.0-46.0); MCH 33.3 PG (29.0-34.0); MCV 107.4 FL (83-99); MEAN PLAT.VOLUME 10.7 uM^3 (9.5-12.4); NRBC (%) 1.2 /100 WBC (0-0); PLATELET COUNT 67 K/uL (156-360); RBC DIS.WIDTH-CV 14.3 % (11.8-14.6); RBC DIS.WIDTH-SD 55.6 % (39-53); RED BLOOD COUNT 2.82 M/uL (3.80-5.20); WHITE BLOOD COUNT 5.9 K/uL (4.1-10.2)
[2017-05-19 18:21] LABS: ANION GAP 9 MEQ/L (2-14); CHLORIDE 113 MEQ/L (99-109); POTASSIUM 3.1 MEQ/L (3.7-5.4); SAMPLE HEMOLYSIS CHECK 0; SAMPLE ICTERIC CHECK 0; SAMPLE LIPEMIA CHECK 0; SODIUM 145 MEQ/L (136-147); TOTAL BILIRUBIN 0.7 MG/DL (0.0-1.0)
[2017-05-19 18:29] LABS: TROP-I INTERPRETATION NEGATIVE; TROPONIN-I 0.06 ng/mL (0.0-0.30)
[2017-05-19 18:33] LABS: ALKALINE PHOSPHATASE 220 IU/L (3-129); GFR ESTIMATE (CALCULATED) > 59 mL/min/; GLUCOSE 98 mg/dL (70-99); UREA NITROGEN (BUN) 5 mg/dL (9-23)
[2017-05-20 00:01] LABS: TROP-I INTERPRETATION NEGATIVE; TROPONIN-I 0.06 ng/mL (0.0-0.30)
[2017-05-20 07:06] LABS: TROP-I INTERPRETATION NEGATIVE; TROPONIN-I 0.06 ng/mL (0.0-0.30)
[2017-05-20 07:07] LABS: ANION GAP 8 MEQ/L (2-14); CHLORIDE 114 MEQ/L (99-109); GFR ESTIMATE (CALCULATED) > 59 mL/min/; GLUCOSE 98 mg/dL (70-99); POTASSIUM 3.2 MEQ/L (3.7-5.4); SAMPLE HEMOLYSIS CHECK 0; SAMPLE ICTERIC CHECK 0; SAMPLE LIPEMIA CHECK 0; SODIUM 146 MEQ/L (136-147); UREA NITROGEN (BUN) 4 mg/dL (9-23)
[2017-05-20 07:52] LABS: HEMATOCRIT 26.8 % (36.0-46.0); IMM.PLATELET FRACTION 3.7 (1-7); MCH 33.3 PG (29.0-34.0); MCV 107.6 FL (83-99); MEAN PLAT.VOLUME 10.6 uM^3 (9.5-12.4); NRBC (%) 1.3 /100 WBC (0-0); RBC DIS.WIDTH-CV 14.5 % (11.8-14.6); RBC DIS.WIDTH-SD 56.6 % (39-53); RED BLOOD COUNT 2.49 M/uL (3.80-5.20); WHITE BLOOD COUNT 3.7 K/uL (4.1-10.2)
[2017-05-20 07:53] LABS: ABS NEUTROPHIL COUNT 2.3; ATYPICAL LYMPHOCYTE 1.8 %; BAND NEUTROPHILS 6.4 % (0-8.0); EOSINOPHIL ABS CT 0.1; EOSINOPHILS 3.7 % (0-5.0); INSTRUMENT ABS NEUTROPHIL CT 1.8 K/uL; LYMPHOCYTES 12.8 % (15.0-45.0); METAMYELOCYTES 7.3 %; MYELOCYTES 2.8 %; OVALOCYTES 1+; PLAT.SUFFICIENCY DECREASED; PLATELET COUNT 45 K/uL (156-360); POIKILOCYTOSIS 1+; POLYCHROMASIA 1+; SEG.NEUTROPHILS 56.9 % (46.0-76.0); TEAR DROP CELLS 1+
[2017-05-20 09:17] VITALS: BP 127/78; BP 177/89
[2017-05-20 23:54] VITALS: BP 134/79
[2017-05-21 05:47] LABS: HEMATOCRIT 26.2 % (36.0-46.0); MCH 33.5 PG (29.0-34.0); MCHC 30.9 G/DL (30.0-36.0); MCV 108.3 FL (83-99); NRBC (%) 0.9 /100 WBC (0-0); RBC DIS.WIDTH-CV 14.9 % (11.8-14.6); RED BLOOD COUNT 2.42 M/uL (3.80-5.20); WHITE BLOOD COUNT 4.3 K/uL (4.1-10.2)
[2017-05-21 06:15] LABS: ANION GAP 8 MEQ/L (2-14); CHLORIDE 112 MEQ/L (99-109); GFR ESTIMATE (CALCULATED) > 59 mL/min/; GLUCOSE 103 mg/dL (70-99); MAGNESIUM 1.2 mg/dl (1.3-2.7); SAMPLE HEMOLYSIS CHECK 0; SAMPLE ICTERIC CHECK 0; SAMPLE LIPEMIA CHECK 0; SODIUM 147 MEQ/L (136-147); UREA NITROGEN (BUN) 3 mg/dL (9-23)
[2017-05-21 06:48] LABS: ABS NEUTROPHIL COUNT 2.8; ANISOCYTOSIS 1+; BAND NEUTROPHILS 3.5 % (0-8.0); BASOPHILS 0.9 %; EOSINOPHIL ABS CT 0.1; EOSINOPHILS 2.6 % (0-5.0); IMM.PLATELET FRACTION 3.3 (1-7); INSTRUMENT ABS NEUTROPHIL CT 2.2 K/uL; LYMPHOCYTES 7.8 % (15.0-45.0); MEAN PLAT.VOLUME 10.9 uM^3 (9.5-12.4); METAMYELOCYTES 3.5 %; MYELOCYTES 1.7 %; NUCLEATED RBC'S 0.9; PLAT.SUFFICIENCY DECREASED; PLATELET COUNT 49 K/uL (156-360); SEG.NEUTROPHILS 62.6 % (46.0-76.0); SMUDGE CELLS 10.4
[2017-05-21 07:50] VITALS: BP 144/76
[2017-05-21 10:59] LABS: PREALBUMIN 9.9 mg/dL (10-40)
[2017-05-21 16:37] VITALS: BP 136/78
[2017-05-22 00:24] VITALS: BP 138/74
[2017-05-22 06:50] LABS: MCHC 31.1 G/DL (30.0-36.0); MCV 109.4 FL (83-99); MEAN PLAT.VOLUME 11.1 uM^3 (9.5-12.4); NRBC (%) 0.7 /100 WBC (0-0); PLATELET COUNT 51 K/uL (156-360); RBC DIS.WIDTH-CV 15.4 % (11.8-14.6); RBC DIS.WIDTH-SD 59.7 % (39-53); RED BLOOD COUNT 2.56 M/uL (3.80-5.20); WHITE BLOOD COUNT 4.6 K/uL (4.1-10.2)
[2017-05-22 07:25] LABS: ANION GAP 7 MEQ/L (2-14); CHLORIDE 109 MEQ/L (99-109); GFR ESTIMATE (CALCULATED) > 59 mL/min/; GLUCOSE 104 mg/dL (70-99); POTASSIUM 3.4 MEQ/L (3.7-5.4); SAMPLE HEMOLYSIS CHECK 0; SAMPLE ICTERIC CHECK 0; SAMPLE LIPEMIA CHECK 0; SODIUM 144 MEQ/L (136-147); TOTAL BILIRUBIN 0.7 MG/DL (0.0-1.0); UREA NITROGEN (BUN) 5 mg/dL (9-23)
[2017-05-22 07:26] LABS: ABS NEUTROPHIL COUNT 2.8; ANISOCYTOSIS 1+; ATYPICAL LYMPHOCYTE 2.8 %; BAND NEUTROPHILS 2.8 % (0-8.0); BASOPHILS 0.9 %; EOSINOPHIL ABS CT 0.3; EOSINOPHILS 5.5 % (0-5.0); INSTRUMENT ABS NEUTROPHIL CT 2.4 K/uL; LYMPHOCYTES 14.7 % (15.0-45.0); METAMYELOCYTES 0.9 %; MYELOCYTES 5.5 %; NUCLEATED RBC'S 0.9; PLAT.SUFFICIENCY DECREASED; POIKILOCYTOSIS 1+; SEG.NEUTROPHILS 58.7 % (46.0-76.0); SMUDGE CELLS 10.1
[2017-05-22 07:30] VITALS: BP 167/79
[2017-05-22 07:31] LABS: ALKALINE PHOSPHATASE 157 IU/L (3-129)
[2017-05-22 16:12] VITALS: BP 139/87
[2017-05-23 06:46] LABS: ANION GAP 9 MEQ/L (2-14); CHLORIDE 108 MEQ/L (99-109); GFR ESTIMATE (CALCULATED) > 59 mL/min/; GLUCOSE 107 mg/dL (70-99); POTASSIUM 3.6 MEQ/L (3.7-5.4); SAMPLE HEMOLYSIS CHECK 0; SAMPLE ICTERIC CHECK 0; SAMPLE LIPEMIA CHECK 0; SODIUM 147 MEQ/L (136-147); UREA NITROGEN (BUN) 6 mg/dL (9-23)
[2017-05-23 06:50] VITALS: BP 137/85
[2017-05-23 15:30] VITALS: BP 132/81
[2017-05-23 23:37] VITALS: BP 139/93
[2017-05-24 06:50] LABS: ANION GAP 7 MEQ/L (2-14); CHLORIDE 105 MEQ/L (99-109); GFR ESTIMATE (CALCULATED) > 59 mL/min/; GLUCOSE 98 mg/dL (70-99); SAMPLE HEMOLYSIS CHECK 0; SAMPLE ICTERIC CHECK 0; SAMPLE LIPEMIA CHECK 0; SODIUM 144 MEQ/L (136-147); UREA NITROGEN (BUN) 10 mg/dL (9-23)
[2017-05-24 06:52] LABS: POTASSIUM 4.4 MEQ/L (3.7-5.4)
[2017-05-24 07:30] VITALS: BP 136/77
[2017-05-24 15:50] VITALS: BP 127/71
[2017-05-25 01:05] VITALS: BP 119/64
[2017-05-25 07:04] LABS: HEMATOCRIT 25.8 % (36.0-46.0); MCH 33.5 PG (29.0-34.0); MCHC 30.6 G/DL (30.0-36.0); MCV 109.3 FL (83-99); MEAN PLAT.VOLUME 10.6 uM^3 (9.5-12.4); NRBC (%) 0.7 /100 WBC (0-0); PLATELET COUNT 51 K/uL (156-360); RBC DIS.WIDTH-SD 59.4 % (39-53); RED BLOOD COUNT 2.36 M/uL (3.80-5.20); WHITE BLOOD COUNT 4.3 K/uL (4.1-10.2)
[2017-05-25 07:34] LABS: EOSINOPHIL (%) 7.7 % (0-5); EOSINOPHIL COUNT 0.3 K/uL (0-0.3); IMMATURE GRANULOCYTE (%) 3.5 % (0.0-0.7); IMMATURE GRANULOCYTE COUNT 0.2 K/uL; INSTRUMENT ABS NEUTROPHIL CT 2.4 K/uL; LYMPHOCYTE COUNT 0.9 K/uL (1.0-2.8); MONOCYTE (%) 10.7 % (3-12); MONOCYTE COUNT 0.5 K/uL (0-0.8); NEUTROPHIL (%) 56.6 % (45-76); NEUTROPHIL COUNT 2.4 K/uL (1.8-6.4); PLAT.SUFFICIENCY DECREASED
[2017-05-25 07:40] LABS: ALKALINE PHOSPHATASE 109 IU/L (3-129); ANION GAP 9 MEQ/L (2-14); CHLORIDE 103 MEQ/L (99-109); GFR ESTIMATE (CALCULATED) > 59 mL/min/; GLUCOSE 97 mg/dL (70-99); POTASSIUM 3.9 MEQ/L (3.7-5.4); SAMPLE HEMOLYSIS CHECK 0; SAMPLE ICTERIC CHECK 0; SAMPLE LIPEMIA CHECK 0; SODIUM 142 MEQ/L (136-147); TOTAL BILIRUBIN 0.8 MG/DL (0.0-1.0); UREA NITROGEN (BUN) 10 mg/dL (9-23)
[2017-05-25 08:00] VITALS: BP 137/82
[2017-05-25] MEDS ORDERED: SPIRIVA18 MCG IH (10:40)
[2017-05-25] MEDS ORDERED: WELCHOL625 MG PO (10:44)
[2017-05-25 15:19] VITALS: BP 123/71
== END 2017-05-25 15:49 | disposition home or self-care (01) | DRG 840 ==
LOC: EME 11:52 → 5EAST 15:54 → EDOF 15:54 → ENRESERV 15:56 → 5EAST 18:21
PROVIDERS: Emergency Medicine; Family Medicine; Student in an Organized Health Care Education/Training Program
DX: C85.90 Non-Hodgkin lymphoma, unspecified, unspecified site (principal); E43 Unspecified severe protein-calorie malnutrition; J44.0 Chronic obstructive pulmonary disease with (acute) lower respiratory infection; A04.72 Enterocolitis due to Clostridium difficile, not specified as recurrent; J90 Pleural effusion, not elsewhere classified; D61.818 Other pancytopenia; L76.34 Postprocedural seroma of skin and subcutaneous tissue following other procedure; Y83.8 Other surgical procedures as the cause of abnormal reaction of the patient, or of later complication, without mention of misadventure at the time of the procedure; I10 Essential (primary) hypertension; F43.23 Adjustment disorder with mixed anxiety and depressed mood; E83.42 Hypomagnesemia; E03.9 Hypothyroidism, unspecified; E78.6 Lipoprotein deficiency; B00.9 Herpesviral infection, unspecified; E78.5 Hyperlipidemia, unspecified; E87.6 Hypokalemia; R16.1 Splenomegaly, not elsewhere classified; Z79.899 Other long term (current) drug therapy; Z87.891 Personal history of nicotine dependence; Z92.21 Personal history of antineoplastic chemotherapy; D89.9 Disorder involving the immune mechanism, unspecified; F41.0 Panic disorder [episodic paroxysmal anxiety]; Y95 Nosocomial condition; E53.1 Pyridoxine deficiency
CPT/HCPCS: 71010; 71260; 71270; 74177; 80048; 80053; 80202; 81003; 82728; 83540; 83605; 83735; 84134; 84145 90; 84484; 85025; 85027; 87040; 87070; 87077; 87086; 87186; 87493; 87502; 87506; 87801; 90686; 93005; 94640; 94640 76; 94799; 99202; 99281; 99284; G0463; J0692; J1644; J1940; J1956; J2405; J2765; J2997; J3370; J7030; J7050; Q0164; Q0169; S0028; S0030

== ENCOUNTER 2017-09-07 06:48 | Day surgery (SDC) | payer OTHER ==
[~2017-09-07] VITALS: Ht 167.6 cm; Wt 74.8 kg
[~2017-09-07 06:48] MED LIST changes: +SPIRIVA18 MCG IH; +SYNTHROID50 MCG PO; +WELCHOL625 MG PO; +XARELTO20 MG PO; +ZOFRAN8 MG PO; +ZOLOFT25 MG PO
[2017-09-07 08:28] VITALS: BP 117/62
[2017-09-07] MEDS ORDERED: NORCO 5/3251 TABLET PO (12:01)
[2017-09-07 13:15] VITALS: BP 108/68
[2017-09-07 13:53] LABS: HEMATOCRIT 25.1 % (36.0-46.0); HEMOGLOBIN 8.4 G/DL (11.9-15.5); MCH 32.8 PG (29.0-34.0); MCHC 33.5 G/DL (30.0-36.0); PLATELET COUNT 87 K/uL (156-360); RBC DIS.WIDTH-CV 17.2 % (11.8-14.6); RBC DIS.WIDTH-SD 61.6 % (39-53); RED BLOOD COUNT 2.56 M/uL (3.80-5.20); WHITE BLOOD COUNT 2.2 K/uL (4.1-10.2)
[2017-09-07 14:15] VITALS: BP 121/65
== END 2017-09-07 14:40 | disposition home or self-care (01) ==
LOC: SDC 06:48
PROVIDERS: Surgery
DX: I88.9 Nonspecific lymphadenitis, unspecified (principal); E03.9 Hypothyroidism, unspecified; I80.9 Phlebitis and thrombophlebitis of unspecified site; C85.90 Non-Hodgkin lymphoma, unspecified, unspecified site; Z86.718 Personal history of other venous thrombosis and embolism; Z79.01 Long term (current) use of anticoagulants; F17.210 Nicotine dependence, cigarettes, uncomplicated; Z88.0 Allergy status to penicillin; Z92.21 Personal history of antineoplastic chemotherapy
CPT/HCPCS: 85027; 88305; J1100; J1170; J2250; J2405; J3010; J3370; S0020

== ENCOUNTER → 2017-09-23 | Outpatient (CLI) | payer OTHER ==
[~2017-09-23] MED LIST changes: +LEVOTHYROXINE75 MCG PO; +PREDNISONE20 MG PO
== END | disposition home or self-care (01) ==
LOC: AMB 10:15
PROC: 0JJWXZZ Inspection of Lower Extremity Subcutaneous Tissue and Fascia, External Approach (ICD-10-PCS; principal; 2017-09-23)
DX: I89.8 Other specified noninfective disorders of lymphatic vessels and lymph nodes (principal); Z98.890 Other specified postprocedural states; Z88.0 Allergy status to penicillin
CPT/HCPCS: 82310; 99212

== ENCOUNTER 2017-09-28 14:08 | Day surgery (SDC) | payer OTHER ==
[~2017-09-28] VITALS: Ht 167.6 cm; Wt 74.8 kg
[2017-09-28] MEDS ORDERED: XANAX0.5 MG PO (14:45)
[2017-09-28 14:47] VITALS: BP 122/75
[2017-09-28 16:06] LABS: HEMATOCRIT 23.3 % (36.0-46.0); HEMOGLOBIN 7.8 G/DL (11.9-15.5); MCV 100.9 FL (83-99)
[2017-09-28] MEDS ORDERED: NORCO 5/3251 TABLET PO (22:36)
[2017-09-29 00:43] VITALS: BP 134/82
== END 2017-09-29 01:00 | disposition home or self-care (01) ==
LOC: SDC 14:08 → 2EASTP 22:16 → 2SOUTH 22:16 → ENRESERV 22:38 → 2EASTP 23:58
PROVIDERS: Surgery
PROC: 0Y9500Z Drainage of Right Inguinal Region with Drainage Device, Open Approach (ICD-10-PCS; principal; 2017-09-28)
DX: I89.8 Other specified noninfective disorders of lymphatic vessels and lymph nodes (principal); I10 Essential (primary) hypertension; E03.9 Hypothyroidism, unspecified; Z87.891 Personal history of nicotine dependence; Z88.0 Allergy status to penicillin; Z92.21 Personal history of antineoplastic chemotherapy; Z86.72 Personal history of thrombophlebitis; Z86.711 Personal history of pulmonary embolism; Z79.01 Long term (current) use of anticoagulants
CPT/HCPCS: 84132; 85014; 85018; G0378; J0690; J1170; J2250; J3010

== ENCOUNTER 2017-11-02 22:03 | Inpatient (IN) | payer OTHER ==
[~2017-11-02] VITALS: Ht 167.6 cm; Wt 65.3 kg
[2017-11-03 10:45] VITALS: BP 122/65
[2017-11-03 11:15] LABS: MCH 33.3 PG (29.0-34.0); MCHC 33.3 G/DL (30.0-36.0); PLATELET COUNT 105 K/uL (156-360); RBC DIS.WIDTH-CV 14.9 % (11.8-14.6); RBC DIS.WIDTH-SD 55.7 % (39-53); WHITE BLOOD COUNT 5.2 K/uL (4.1-10.2)
[2017-11-03 11:42] LABS: ALBUMIN 3.7 G/DL (3.2-4.8); ALKALINE PHOSPHATASE 76 IU/L (3-129); ALT (GPT) 6 IU/L (3-49); AST (GOT) 10 IU/L (2-34); CHLORIDE 105 MEQ/L (99-109); CREATININE 1.3 MG/DL (0.6-1.3); GFR ESTIMATE (CALCULATED) 44 mL/min/; GLUCOSE 97 mg/dL (70-99); POTASSIUM 4.1 MEQ/L (3.7-5.4); SODIUM 140 MEQ/L (136-147); TOTAL BILIRUBIN 0.9 MG/DL (0.0-1.0); UREA NITROGEN (BUN) 23 mg/dL (9-23)
[2017-11-03 12:20] LABS: INTER. NORMALIZED RATIO 1.2
[2017-11-03 12:23] LABS: PTT 30.6 SEC (25-37)
[2017-11-03 15:33] LABS: APPEARANCE SL.HAZY ((CLEAR)); BILIRUBIN NEGATIVE; BLOOD LARGE; COLOR YELLOW ((YELLOW)); GLUCOSE (STRIP) NEGATIVE; KETONES NEGATIVE; LEUKOCYTES SMALL; NITRITE NEGATIVE; PROTEIN (STRIP) 30; UROBILINOGEN 0.2 MG/DL (0.2-1.0)
[2017-11-03 15:45] VITALS: BP 97/50
[2017-11-03 16:08] LABS: BACTERIA RARE /HPF; EPITHELIAL CELLS RARE /HPF; HYALINE CASTS 0-5 /LPF; MUCUS TRACE /LPF; RED BLOOD CELLS TNTC /HPF (0-5); WHITE BLOOD CELLS 40-50 /HPF (0-5)
[2017-11-03 23:13] VITALS: BP 122/68
[2017-11-04 06:56] VITALS: BP 110/59
[2017-11-04 10:24] LABS: CHLORIDE 107 MEQ/L (99-109); CREATININE 1.4 MG/DL (0.6-1.3); GFR ESTIMATE (CALCULATED) 40 mL/min/; GLUCOSE 104 mg/dL (70-99); POTASSIUM 4.3 MEQ/L (3.7-5.4); SODIUM 139 MEQ/L (136-147); UREA NITROGEN (BUN) 21 mg/dL (9-23)
[2017-11-04 16:35] VITALS: BP 109/57
[2017-11-04 22:38] VITALS: BP 118/71
[2017-11-05 06:59] VITALS: BP 100/57
[2017-11-05 15:04] VITALS: BP 93/50
[2017-11-05 22:59] VITALS: BP 112/62
[2017-11-06 07:06] VITALS: BP 107/56
== END 2017-11-06 10:40 | disposition home or self-care (01) | DRG 847 ==
LOC: ENRESERV 22:03 → 5EAST 11-03 10:37
PROVIDERS: Internal Medicine Hematology & Oncology
DX: Z51.11 Encounter for antineoplastic chemotherapy (principal); C84.48 Peripheral T-cell lymphoma, not elsewhere classified, lymph nodes of multiple sites; F33.9 Major depressive disorder, recurrent, unspecified; E03.9 Hypothyroidism, unspecified; E78.5 Hyperlipidemia, unspecified; I10 Essential (primary) hypertension; J44.9 Chronic obstructive pulmonary disease, unspecified; F41.9 Anxiety disorder, unspecified; I87.8 Other specified disorders of veins; I89.8 Other specified noninfective disorders of lymphatic vessels and lymph nodes; Z79.01 Long term (current) use of anticoagulants; Z87.891 Personal history of nicotine dependence; Z88.0 Allergy status to penicillin
CPT/HCPCS: 80048; 80053; 81003; 85027; 85610; 85730; 87086; 94640; 94640 76; 99202; C1752; C1894; J1200; J1644; J2250; J2405; J2469; J7030; J7040; J7050; J9045; J9181; J9208; J9209; S0020

== ENCOUNTER 2017-11-19 12:40 | Inpatient (IN) | payer OTHER ==
[~2017-11-19] VITALS: Ht 172.7 cm; Wt 61.3 kg
[2017-11-19] VITALS (12 sets, daily range): BP systolic 91–135; BP diastolic 47–73
[~2017-11-19 12:40] MED LIST changes: +VICODIN 5-3001 EACH PO
[2017-11-19 13:22] LABS: CHLORIDE 111 mEq/L (99-109); SODIUM 136 mEq/L (136-147)
[2017-11-19 13:22] LABS: INTER. NORMALIZED RATIO 1.3
[2017-11-19 13:24] LABS: GLUCOSE 137 mg/dL (70-99)
[2017-11-19 13:25] LABS: PTT 29.5 SEC (25-37)
[2017-11-19 13:26] LABS: POTASSIUM 2.7 mEq/L (3.7-5.4)
[2017-11-19 13:28] LABS: CREATININE 1.3 mg/dL (0.6-1.3); GFR ESTIMATE (CALCULATED) 44 mL/min/
[2017-11-19 13:29] LABS: HEMATOCRIT 11.3 % (36.0-46.0); IMM.PLATELET FRACTION 0.1 (1-7); MCH 32.5 PG (29.0-34.0); MCHC 36.3 G/DL (30.0-36.0); RBC DIS.WIDTH-CV 12.3 % (11.8-14.6); RBC DIS.WIDTH-SD 40.4 % (39-53); UREA NITROGEN (BUN) 30 mg/dL (9-23)
[2017-11-19 13:31] LABS: HEMOGLOBIN 4.1 G/DL (11.9-15.5); MCV 89.7 FL (83-99); PLATELET COUNT 9 K/uL (156-360); RED BLOOD COUNT 1.26 M/uL (3.80-5.20); WHITE BLOOD COUNT 0.1 K/uL (4.1-10.2)
[2017-11-19] MEDS ORDERED: [UNRECOGNIZED DRUG - MIXTURE] (14:29)
[2017-11-19] MEDS ORDERED: XARELTO20 MG PO (14:29)
[2017-11-19 18:03] LABS: C DIFF TOXIN POSITIVE (NEGATIVE)
[2017-11-19 22:36] LABS: MCH 31.2 PG (29.0-34.0); MCHC 35.3 G/DL (30.0-36.0); MCV 88.2 FL (83-99); RBC DIS.WIDTH-CV 13.1 % (11.8-14.6); RBC DIS.WIDTH-SD 42.6 % (39-53)
[2017-11-19 22:46] LABS: HEMOGLOBIN 5.3 G/DL (11.9-15.5); WHITE BLOOD COUNT 0.1 K/uL (4.1-10.2)
[2017-11-19 23:06] LABS: BUFFY COAT SMEAR SEE DIFF RESULTS
[2017-11-19 23:08] LABS: IMM.PLATELET FRACTION 0.1 (1-7); PLATELET COUNT 28 K/uL (156-360)
[2017-11-20] VITALS (21 sets, daily range): BP systolic 85–165; BP diastolic 48–98
[2017-11-20 01:46] LABS: ABS NEUTROPHIL COUNT 0; ATYPICAL LYMPHOCYTE 5.3 %; EOSINOPHIL ABS CT 0; HYPOCHROMASIA 2+; MICROCYTOSIS 2+; PLAT.SUFFICIENCY VERY DECREASED; SEG.NEUTROPHILS 8.8 % (46.0-76.0)
[2017-11-20 02:41] LABS: LYMPHOCYTES 66.6 % (15.0-45.0); MONOCYTES 19.3 % (0-9.0)
[2017-11-20 05:52] LABS: HEMATOCRIT 14.6 % (36.0-46.0); MCH 30.7 PG (29.0-34.0); MCHC 34.9 G/DL (30.0-36.0); RBC DIS.WIDTH-CV 13.8 % (11.8-14.6); RED BLOOD COUNT 1.66 M/uL (3.80-5.20)
[2017-11-20 05:55] LABS: HEMOGLOBIN 5.1 G/DL (11.9-15.5); WHITE BLOOD COUNT 0.1 K/uL (4.1-10.2)
[2017-11-20 05:57] LABS: PLATELET COUNT 17 K/uL (156-360)
[2017-11-20 06:40] LABS: CHLORIDE 111 MEQ/L (99-109); CREATININE 1.2 MG/DL (0.6-1.3); GFR ESTIMATE (CALCULATED) 48 mL/min/; GLUCOSE 147 mg/dL (70-99); SODIUM 136 MEQ/L (136-147); UREA NITROGEN (BUN) 30 mg/dL (9-23)
[2017-11-20 06:42] LABS: POTASSIUM 2.3 MEQ/L (3.7-5.4)
[2017-11-20 07:25] LABS: BUFFY COAT SMEAR SEE DIFF RESULTS
[2017-11-20 09:04] LABS: ABS NEUTROPHIL COUNT 0; ANISOCYTOSIS 2+; EOSINOPHIL ABS CT 0; IMM.PLATELET FRACTION 0.1 (1-7); MACROCYTES 1+; MICROCYTOSIS 2+; PLAT.SUFFICIENCY VERY DECREASED
[2017-11-20 21:20] LABS: PLAT.SUFFICIENCY VERY DECREASED
[2017-11-20 21:21] LABS: HEMOGLOBIN 6.8 G/DL (11.9-15.5); IMM.PLATELET FRACTION 0.2 (1-7); MCH 30.6 PG (29.0-34.0); MCHC 35.8 G/DL (30.0-36.0); MCV 85.6 FL (83-99); PLATELET COUNT 26 K/uL (156-360); RBC DIS.WIDTH-SD 43.8 % (39-53); RED BLOOD COUNT 2.22 M/uL (3.80-5.20); WHITE BLOOD COUNT 0.1 K/uL (4.1-10.2)
[2017-11-21] VITALS (9 sets, daily range): BP systolic 105–181; BP diastolic 56–104
[2017-11-21 07:08] LABS: HEMATOCRIT 17.6 % (36.0-46.0); HEMOGLOBIN 6.3 G/DL (11.9-15.5); MCH 30.3 PG (29.0-34.0); MCHC 35.8 G/DL (30.0-36.0); MCV 84.6 FL (83-99); RBC DIS.WIDTH-CV 15.2 % (11.8-14.6); RBC DIS.WIDTH-SD 46.8 % (39-53); RED BLOOD COUNT 2.08 M/uL (3.80-5.20); WHITE BLOOD COUNT 0.1 K/uL (4.1-10.2)
[2017-11-21 07:21] LABS: ALBUMIN 2.8 G/DL (3.2-4.8); ALT (GPT) 28 IU/L (3-49); AST (GOT) 12 IU/L (2-34); CHLORIDE 115 MEQ/L (99-109); GFR ESTIMATE (CALCULATED) > 59 mL/min/; GLUCOSE 142 mg/dL (70-99); UREA NITROGEN (BUN) 22 mg/dL (9-23)
[2017-11-21 07:26] LABS: ALKALINE PHOSPHATASE 121 IU/L (3-129); POTASSIUM 2.8 MEQ/L (3.7-5.4); SODIUM 143 MEQ/L (136-147); TOTAL BILIRUBIN 0.9 MG/DL (0.0-1.0); TOTAL PROTEIN 4.7 G/DL (6.4-8.3)
[2017-11-21 09:16] LABS: ABS NEUTROPHIL COUNT 0; ANISOCYTOSIS 1+; EOSINOPHIL ABS CT 0; IMM.PLATELET FRACTION 0.2 (1-7); MICROCYTOSIS 1+; PLAT.SUFFICIENCY VERY DECREASED
[2017-11-21 09:17] LABS: PLATELET COUNT 20 K/uL (156-360)
[2017-11-21 10:35] LABS: MAGNESIUM 1.5 mg/dl (1.3-2.7)
[2017-11-22] VITALS (10 sets, daily range): BP systolic 99–128; BP diastolic 62–80
[2017-11-22 05:51] LABS: CHLORIDE 115 MEQ/L (99-109); GFR ESTIMATE (CALCULATED) > 59 mL/min/; GLUCOSE 141 mg/dL (70-99); SODIUM 139 MEQ/L (136-147); UREA NITROGEN (BUN) 16 mg/dL (9-23)
[2017-11-22 05:52] LABS: POTASSIUM 3.7 MEQ/L (3.7-5.4)
[2017-11-22 12:59] LABS: HEMATOCRIT 22.5 % (36.0-46.0); HEMOGLOBIN 7.9 G/DL (11.9-15.5); MCH 29.9 PG (29.0-34.0); MCHC 35.1 G/DL (30.0-36.0); MCV 85.2 FL (83-99); RBC DIS.WIDTH-CV 15.5 % (11.8-14.6); RBC DIS.WIDTH-SD 48.7 % (39-53)
[2017-11-22 13:00] LABS: RED BLOOD COUNT 2.64 M/uL (3.80-5.20); WHITE BLOOD COUNT 0.3 K/uL (4.1-10.2)
[2017-11-22 13:24] LABS: ABS NEUTROPHIL COUNT 0.1; ANISOCYTOSIS 1+; BAND NEUTROPHILS 8.3 % (0-8.0); BASOPHILS 1.7 %; EOSINOPHIL ABS CT 0; IMM.PLATELET FRACTION 0.6 (1-7); LYMPHOCYTES 38.4 % (15.0-45.0); MONOCYTES 21.6 % (0-9.0); MYELOCYTES 1.7 %; NUCLEATED RBC'S 16.7; PLAT.SUFFICIENCY VERY DECREASED; PLATELET COUNT 12 K/uL (156-360); POIKILOCYTOSIS 1+; SEG.NEUTROPHILS 28.3 % (46.0-76.0)
[2017-11-23] VITALS (9 sets, daily range): BP systolic 96–127; BP diastolic 56–92
[2017-11-23 06:24] LABS: CHLORIDE 115 MEQ/L (99-109); CREATININE 0.8 MG/DL (0.6-1.3); GFR ESTIMATE (CALCULATED) > 59 mL/min/; GLUCOSE 117 mg/dL (70-99); POTASSIUM 4.3 MEQ/L (3.7-5.4); SODIUM 138 MEQ/L (136-147); UREA NITROGEN (BUN) 13 mg/dL (9-23)
[2017-11-23 06:55] LABS: HEMATOCRIT 23.2 % (36.0-46.0); HEMOGLOBIN 8.2 G/DL (11.9-15.5); MCH 30.5 PG (29.0-34.0); MCHC 35.3 G/DL (30.0-36.0); MCV 86.2 FL (83-99); NRBC (%) 3.8 /100 WBC (0-0); RBC DIS.WIDTH-CV 16.1 % (11.8-14.6); RED BLOOD COUNT 2.69 M/uL (3.80-5.20)
[2017-11-23 06:59] LABS: WHITE BLOOD COUNT 0.5 K/uL (4.1-10.2)
[2017-11-23 07:31] LABS: ABS NEUTROPHIL COUNT 0.2; ANISOCYTOSIS 1+; ATYPICAL LYMPHOCYTE 5.2 %; BAND NEUTROPHILS 6.1 % (0-8.0); BASOPHILS 0.9 %; EOSINOPHIL ABS CT 0; IMM.PLATELET FRACTION 1.3 (1-7); LYMPHOCYTES 31.3 % (15.0-45.0); MICROCYTOSIS 1+; MONOCYTES 25.2 % (0-9.0); NUCLEATED RBC'S 0.9; PLAT.SUFFICIENCY VERY DECREASED; POIKILOCYTOSIS 1+; SEG.NEUTROPHILS 31.3 % (46.0-76.0)
[2017-11-23 07:32] LABS: PLATELET COUNT 10 K/uL (156-360)
[2017-11-24 03:30] VITALS: BP 110/77
[2017-11-24 05:45] LABS: CHLORIDE 115 MEQ/L (99-109); CREATININE 0.8 MG/DL (0.6-1.3); GFR ESTIMATE (CALCULATED) > 59 mL/min/; GLUCOSE 110 mg/dL (70-99); HEMATOCRIT 23.2 % (36.0-46.0); HEMOGLOBIN 8.1 G/DL (11.9-15.5); MCHC 34.9 G/DL (30.0-36.0); MCV 85.9 FL (83-99); POTASSIUM 4.7 MEQ/L (3.7-5.4); RBC DIS.WIDTH-CV 15.9 % (11.8-14.6); RBC DIS.WIDTH-SD 50.4 % (39-53); SODIUM 140 MEQ/L (136-147); UREA NITROGEN (BUN) 12 mg/dL (9-23)
[2017-11-24 05:54] LABS: ABS NEUTROPHIL COUNT 0.6; ANISOCYTOSIS 1+; BAND NEUTROPHILS 3.2 % (0-8.0); EOSINOPHIL ABS CT 0; IMM.PLATELET FRACTION 0.9 (1-7); LYMPHOCYTES 28.4 % (15.0-45.0); METAMYELOCYTES 2.1 %; MICROCYTOSIS 1+; MYELOCYTES 2.1 %; OVALOCYTES 1+; PLAT.SUFFICIENCY DECREASED; POIKILOCYTOSIS 1+; SMUDGE CELLS 1.1
[2017-11-24 05:57] LABS: MONOCYTES 6.3 % (0-9.0); PLATELET COUNT 30 K/uL (156-360); SEG.NEUTROPHILS 57.9 % (46.0-76.0)
[2017-11-24 07:10] VITALS: BP 114/71
[2017-11-24 11:21] VITALS: BP 100/59
[2017-11-24 15:54] VITALS: BP 121/77
[2017-11-24 19:00] VITALS: BP 102/60
[2017-11-24 22:45] VITALS: BP 111/66
[2017-11-25 03:00] VITALS: BP 123/71
[2017-11-25 05:49] LABS: CHLORIDE 111 MEQ/L (99-109); CREATININE 0.8 MG/DL (0.6-1.3); GFR ESTIMATE (CALCULATED) > 59 mL/min/; GLUCOSE 102 mg/dL (70-99); POTASSIUM 4.1 MEQ/L (3.7-5.4); SODIUM 138 MEQ/L (136-147); UREA NITROGEN (BUN) 13 mg/dL (9-23)
[2017-11-25 05:57] LABS: HEMATOCRIT 25.1 % (36.0-46.0); HEMOGLOBIN 8.4 G/DL (11.9-15.5); MCH 29.2 PG (29.0-34.0); MCHC 33.5 G/DL (30.0-36.0); MCV 87.2 FL (83-99); NRBC (%) 1.8 /100 WBC (0-0); RBC DIS.WIDTH-CV 15.8 % (11.8-14.6); RBC DIS.WIDTH-SD 50.4 % (39-53); RED BLOOD COUNT 2.88 M/uL (3.80-5.20)
[2017-11-25 06:10] LABS: ABS NEUTROPHIL COUNT 1.1; BAND NEUTROPHILS 1.7 % (0-8.0); EOSINOPHIL ABS CT 0; IMM.PLATELET FRACTION 1.4 (1-7); LYMPHOCYTES 15.6 % (15.0-45.0); MONOCYTES 15.7 % (0-9.0); MYELOCYTES 2.6 %; NUCLEATED RBC'S 0.9; PLAT.SUFFICIENCY DECREASED; POIKILOCYTOSIS 1+; SEG.NEUTROPHILS 64.4 % (46.0-76.0)
[2017-11-25 06:20] LABS: PLATELET COUNT 27 K/uL (156-360); WHITE BLOOD COUNT 1.7 K/uL (4.1-10.2)
[2017-11-25 07:20] VITALS: BP 116/51
[2017-11-25 12:30] VITALS: BP 110/64
[2017-11-25 21:11] VITALS: BP 110/65
[2017-11-26] VITALS (7 sets, daily range): BP systolic 101–129; BP diastolic 50–79
[2017-11-26 05:53] LABS: HEMATOCRIT 26.3 % (36.0-46.0); MCH 30.3 PG (29.0-34.0); MCHC 34.2 G/DL (30.0-36.0); MCV 88.6 FL (83-99); NRBC (%) 0.8 /100 WBC (0-0); RBC DIS.WIDTH-CV 15.8 % (11.8-14.6); RBC DIS.WIDTH-SD 51.1 % (39-53); RED BLOOD COUNT 2.97 M/uL (3.80-5.20); WHITE BLOOD COUNT 2.6 K/uL (4.1-10.2)
[2017-11-26 06:25] LABS: ABS NEUTROPHIL COUNT 2.4; BASOPHILS 0.9 %; EOSINOPHIL ABS CT 0; IMM.PLATELET FRACTION 3.2 (1-7); LYMPHOCYTES 0.9 % (15.0-45.0); METAMYELOCYTES 0.9 %; MYELOCYTES 1.7 %; OVALOCYTES 1+; PLAT.SUFFICIENCY DECREASED; PLATELET COUNT 31 K/uL (156-360); POIKILOCYTOSIS 1+; TEAR DROP CELLS 1+
[2017-11-26 06:26] LABS: MONOCYTES 2.6 % (0-9.0)
[2017-11-27 03:44] VITALS: BP 140/78
[2017-11-27 07:00] LABS: CHLORIDE 119 MEQ/L (99-109); GFR ESTIMATE (CALCULATED) > 59 mL/min/; GLUCOSE 123 mg/dL (70-99); POTASSIUM 4.6 MEQ/L (3.7-5.4); SODIUM 137 MEQ/L (136-147)
[2017-11-27 07:10] LABS: UREA NITROGEN (BUN) 25 mg/dL (9-23)
[2017-11-27 07:16] VITALS: BP 140/70
[2017-11-27 10:26] LABS: HEMATOCRIT 27.5 % (36.0-46.0); HEMOGLOBIN 9.2 G/DL (11.9-15.5); MCH 29.8 PG (29.0-34.0); MCHC 33.5 G/DL (30.0-36.0); NRBC (%) 0.3 /100 WBC (0-0); RBC DIS.WIDTH-CV 15.8 % (11.8-14.6); RBC DIS.WIDTH-SD 51.4 % (39-53); RED BLOOD COUNT 3.09 M/uL (3.80-5.20); WHITE BLOOD COUNT 5.8 K/uL (4.1-10.2)
[2017-11-27 10:35] LABS: PLATELET COUNT 57 K/uL (156-360)
[2017-11-27 11:00] LABS: ANISOCYTOSIS 1+; BASOPH.STIPPLING 1+; BASOPHILS 0.9 %; EOSINOPHIL ABS CT 0; LYMPHOCYTES 5.2 % (15.0-45.0); MACROCYTES 1+; METAMYELOCYTES 2.6 %; MICROCYTOSIS 1+; MONOCYTES 4.3 % (0-9.0); MYELOCYTES 0.9 %; OVALOCYTES 1+; PLAT.SUFFICIENCY DECREASED; POIKILOCYTOSIS 1+; POLYCHROMASIA 2+; SEG.NEUTROPHILS 79.1 % (46.0-76.0); TOXIC GRANULATION 1+
[2017-11-27 11:39] VITALS: BP 130/78
[2017-11-27 16:10] VITALS: BP 126/82
[2017-11-27 19:18] VITALS: BP 121/71
[2017-11-28] VITALS: BP 140/86
[2017-11-28 06:50] VITALS: BP 142/84
[2017-11-28 07:02] LABS: HEMATOCRIT 27.6 % (36.0-46.0); MCH 29.6 PG (29.0-34.0); MCHC 32.6 G/DL (30.0-36.0); MCV 90.8 FL (83-99); NRBC (%) 0.6 /100 WBC (0-0); PLATELET COUNT 70 K/uL (156-360); RBC DIS.WIDTH-CV 15.7 % (11.8-14.6); RBC DIS.WIDTH-SD 52.3 % (39-53); RED BLOOD COUNT 3.04 M/uL (3.80-5.20); WHITE BLOOD COUNT 6.5 K/uL (4.1-10.2)
[2017-11-28 07:40] LABS: ABS NEUTROPHIL COUNT 5.9; ANISOCYTOSIS 2+; BAND NEUTROPHILS 3.5 % (0-8.0); BASOPHILS 0.9 %; EOSINOPHIL ABS CT 0; MACROCYTES 1+; METAMYELOCYTES 1.7 %; MICROCYTOSIS 1+; MONOCYTES 5.3 % (0-9.0); MYELOCYTES 0.9 %; OVALOCYTES 1+; PLAT.SUFFICIENCY DECREASED; POIKILOCYTOSIS 1+; POLYCHROMASIA 1+; SEG.NEUTROPHILS 87.7 % (46.0-76.0)
[2017-11-28 16:20] VITALS: BP 113/69
[2017-11-29] VITALS: BP 135/59
[2017-11-29 06:21] LABS: HEMATOCRIT 26.3 % (36.0-46.0); HEMOGLOBIN 8.5 G/DL (11.9-15.5); MCH 29.8 PG (29.0-34.0); MCHC 32.3 G/DL (30.0-36.0); MCV 92.3 FL (83-99); NRBC (%) 1.2 /100 WBC (0-0); RBC DIS.WIDTH-CV 15.6 % (11.8-14.6); RED BLOOD COUNT 2.85 M/uL (3.80-5.20); WHITE BLOOD COUNT 7.7 K/uL (4.1-10.2)
[2017-11-29 06:30] LABS: PLATELET COUNT 93 K/uL (156-360)
[2017-11-29 06:50] VITALS: BP 103/62
[2017-11-29 06:56] LABS: ABS NEUTROPHIL COUNT 5.7; ANISOCYTOSIS 1+; ATYPICAL LYMPHOCYTE 0.9 %; BAND NEUTROPHILS 3.5 % (0-8.0); CHLORIDE 111 MEQ/L (99-109); CREATININE 0.6 MG/DL (0.6-1.3); EOSINOPHIL ABS CT 0; GFR ESTIMATE (CALCULATED) > 59 mL/min/; LYMPHOCYTES 6.1 % (15.0-45.0); MACROCYTES 1+; METAMYELOCYTES 5.3 %; MONOCYTES 11.4 % (0-9.0); MYELOCYTES 2.6 %; NUCLEATED RBC'S 0.9; PLAT.SUFFICIENCY DECREASED; SEG.NEUTROPHILS 70.2 % (46.0-76.0); SODIUM 138 MEQ/L (136-147); UREA NITROGEN (BUN) 26 mg/dL (9-23)
[2017-11-29 06:58] LABS: GLUCOSE 80 mg/dL (70-99)
[2017-11-29 16:40] VITALS: BP 121/63
[2017-11-29 23:45] VITALS: BP 98/60
[2017-11-30 07:29] VITALS: BP 104/66
[2017-11-30 16:29] VITALS: BP 106/62
[2017-12-01 07:16] VITALS: BP 115/81
[2017-12-01 15:33] VITALS: BP 109/69
[2017-12-02 01:35] VITALS: BP 172/84
[2017-12-02 07:35] VITALS: BP 103/61
[2017-12-02] MEDS ORDERED: ONDANSETRON ODT4 MG PO (15:22)
[2017-12-02] MEDS ORDERED: DRONABINOL2.5 MG PO (15:22)
[2017-12-02] MEDS ORDERED: PROMETHAZINE HC25 M1 PO (15:23)
[2017-12-02 15:45] VITALS: BP 104/60
== END 2017-12-02 16:02 | disposition home or self-care (01) | DRG 808 ==
LOC: EME 12:40 → 4EAST 14:15 → 5EAST 14:15 → EDOF 14:15 → ENRESERV 14:28 → EDOF 14:34 → ENRESERV 14:54 → 4EAST 17:29 → ENRESERV 11-25 08:39 → 5EAST 11-25 11:58 → ENRESERV 11-25 13:52 → CANRESERV 11-25 13:52 → 5EAST 12-02 16:02
PROVIDERS: Emergency Medicine; Family Medicine; Internal Medicine Hematology & Oncology
DX: D61.810 Antineoplastic chemotherapy induced pancytopenia (principal); A04.72 Enterocolitis due to Clostridium difficile, not specified as recurrent; J18.9 Pneumonia, unspecified organism; J44.0 Chronic obstructive pulmonary disease with (acute) lower respiratory infection; C84.40 Peripheral T-cell lymphoma, not elsewhere classified, unspecified site; Y95 Nosocomial condition; D68.59 Other primary thrombophilia; I48.0 Paroxysmal atrial fibrillation; B37.0 Candidal stomatitis; D64.81 Anemia due to antineoplastic chemotherapy; T45.1X5A Adverse effect of antineoplastic and immunosuppressive drugs, initial encounter; E87.6 Hypokalemia; E53.8 Deficiency of other specified B group vitamins; I12.9 Hypertensive chronic kidney disease with stage 1 through stage 4 chronic kidney disease, or unspecified chronic kidney disease; N18.1 Chronic kidney disease, stage 1; R04.0 Epistaxis; R50.81 Fever presenting with conditions classified elsewhere; E78.5 Hyperlipidemia, unspecified; E78.1 Pure hyperglyceridemia; E03.9 Hypothyroidism, unspecified; K21.9 Gastro-esophageal reflux disease without esophagitis; K44.9 Diaphragmatic hernia without obstruction or gangrene; K80.20 Calculus of gallbladder without cholecystitis without obstruction; R16.1 Splenomegaly, not elsewhere classified; F41.8 Other specified anxiety disorders; F43.23 Adjustment disorder with mixed anxiety and depressed mood; Z79.899 Other long term (current) drug therapy; Z86.711 Personal history of pulmonary embolism; Z79.01 Long term (current) use of anticoagulants; Z87.891 Personal history of nicotine dependence; Z88.0 Allergy status to penicillin
CPT/HCPCS: 36415; 36430; 71045; 74176; 80048; 80053; 81003; 83605; 83735; 85009; 85025; 85025 91; 85027; 85610; 85730; 86850; 86900; 86901; 86920; 86999; 87040; 87086; 87493; 87502; 93005; 94640; 94640 76; 96374; 96375; 99202; 99281; 99285; C9113; J0282; J0692; J0780; J1160; J1200; J1447; J2060; J2405; J2469; J2765; J3480; J7030; J7040; J7050; J7512; J9045; J9181; J9208; J9209; P9016; P9035; P9037; P9040; Q0167; Q0169; S0028; S0030

== ENCOUNTER 2017-12-23 14:42 | Inpatient (IN) | payer OTHER ==
[~2017-12-23] VITALS: Ht 167.6 cm; Wt 59.4 kg
[~2017-12-23 14:42] MED LIST changes: +CLARITIN10 M3 PO; +COMPAZINE5 MG PO; +ONDANSETRON ODT4 MG PO; +PROMETHAZINE HC25 M1 PO; +WELLBUTRIN75 MG PO; +[UNRECOGNIZED DRUG - MIXTURE]
[2017-12-24 09:50] VITALS: BP 110/59
[2017-12-24 10:47] LABS: BASOPHIL (%) 0.2 % (0-1); EOSINOPHIL (%) 0 % (0-5); HEMATOCRIT 28.8 % (36.0-46.0); HEMOGLOBIN 9.5 G/DL (11.9-15.5); IMMATURE GRANULOCYTE (%) 4.4 % (0.0-0.7); LYMPHOCYTE (%) 6.8 % (15-42); LYMPHOCYTE COUNT 0.8 K/uL (1.0-2.8); MCV 94.1 FL (83-99); MONOCYTE (%) 7.4 % (3-12); MONOCYTE COUNT 0.9 K/uL (0-0.8); NEUTROPHIL (%) 81.2 % (45-76); NEUTROPHIL COUNT 9.9 K/uL (1.8-6.4); NRBC (%) 0.2 /100 WBC (0-0); PLATELET COUNT 83 K/uL (156-360); RBC DIS.WIDTH-CV 18.3 % (11.8-14.6); RBC DIS.WIDTH-SD 52.8 % (39-53); RED BLOOD COUNT 3.06 M/uL (3.80-5.20); WHITE BLOOD COUNT 12.2 K/uL (4.1-10.2)
[2017-12-24 11:17] LABS: ALBUMIN 3.2 G/DL (3.2-4.8); ALKALINE PHOSPHATASE 91 IU/L (3-129); ALT (GPT) 18 IU/L (3-49); AST (GOT) 15 IU/L (2-34); CHLORIDE 109 MEQ/L (99-109); GFR ESTIMATE (CALCULATED) > 59 mL/min/; GLUCOSE 106 mg/dL (70-99); POTASSIUM 3.6 MEQ/L (3.7-5.4); SODIUM 140 MEQ/L (136-147); TOTAL BILIRUBIN 0.6 MG/DL (0.0-1.0); TOTAL PROTEIN 5.4 G/DL (6.4-8.3); UREA NITROGEN (BUN) 35 mg/dL (9-23)
[2017-12-24 11:25] VITALS: BP 111/68
[2017-12-24 14:36] VITALS: BP 112/62
[2017-12-24 15:51] LABS: TROP-I INTERPRETATION NEGATIVE; TROPONIN-I < 0.01 ng/mL (0.0-0.30)
[2017-12-24 15:52] LABS: D-DIMER ELISA < 150.00 ng/mLDDU (<230)
[2017-12-24] MEDS ORDERED: VANCOCIN HCL125 MG PO (17:02)
[2017-12-24 18:30] VITALS: BP 140/63
[2017-12-24 22:34] VITALS: BP 153/79
[2017-12-25 06:09] VITALS: BP 115/60
[2017-12-25 12:30] VITALS: BP 105/64
[2017-12-26 00:55] VITALS: BP 118/58
[2017-12-26 06:50] VITALS: BP 108/53
[2017-12-26 12:00] VITALS: BP 144/66
== END 2017-12-26 12:55 | disposition home or self-care (01) | DRG 847 ==
LOC: 5EAST 14:42 → ENRESERVTM 20:54 → ENRESERV 20:54 → ENRESERVDT 20:54 → ENRESERV 22:07 → 5EAST 12-24 09:33
PROVIDERS: Hospitalist; Internal Medicine Hematology & Oncology
DX: Z51.11 Encounter for antineoplastic chemotherapy (principal); C84.4 Peripheral T-cell lymphoma, not elsewhere classified; C84.49 Peripheral T-cell lymphoma, not elsewhere classified, extranodal and solid organ sites; R07.9 Chest pain, unspecified; J44.9 Chronic obstructive pulmonary disease, unspecified; I10 Essential (primary) hypertension; E78.5 Hyperlipidemia, unspecified; E03.9 Hypothyroidism, unspecified; F41.9 Anxiety disorder, unspecified; F32.9 Major depressive disorder, single episode, unspecified; Z86.711 Personal history of pulmonary embolism; Z87.891 Personal history of nicotine dependence; Z88.0 Allergy status to penicillin
CPT/HCPCS: 80053; 84484; 85025; 85379; 93005; 94640; 94640 76; 99202; J1644; J2060; J2469; J7030; J7040; J7050; J9045; J9181; J9208; J9209; Q0164; Q0167; Q0169